=== PATIENT | male | born 1965 | race Caucasian/White ===

== ENCOUNTER 2022-04-07 12:22 | Outpatient (CLI) | payer MEDICARE, MEDICAID, SELFPAY ==
--- NOTE | 2022-04-07 11:15 | DI.RAD_ITS ---
Exam(s) XR KNEE RT 3V AP,LAT,MAGALIS EXAM: XR KNEE RT 3V AP,LAT,MAGALIS CLINICAL HISTORY: right knee pain TECHNIQUE: COMPARISON: No exams were available for comparison FINDINGS: Three views were obtained. There is no gross joint effusion seen on the lateral view. There may be slight narrowing of the cartilaginous joint space of the patellofemoral joint laterally. Otherwise c artilaginous joint spaces are well maintained. Slight marginal osteophyte formation is noted at the patellofemoral joint. No other significant bony abnormality seen. IMPRESSION: Mild DJD predominantly involving patellofemoral joint RADIATION DOSE DELIVERED: Total DLP
== END 2022-04-07 12:23 | disposition home or self-care (01) ==
LOC: DIORS 12:22
PROVIDERS: PCP Nurse Practitioner Adult Health; Referring Provider Nurse Practitioner Adult Health; Visit Provider Student in an Organized Health Care Education/Training Program
DX: M23.91 Unspecified internal derangement of right knee; M94.261 Chondromalacia, right knee
CPT/HCPCS: 73562; 99202; 99204

== ENCOUNTER 2022-04-08 15:47 | Emergency (ER) | payer MEDICARE, MEDICAID, SELFPAY ==
[2022-04-08] VITALS (24 sets, daily range): BP systolic 121–145; BP diastolic 76–86; PULSE 50–78; RESP 0–23; TEMP 36.2; O2SAT 84–97
--- NOTE | 2022-04-08 15:45 | RT.EKG_ITS ---
APPROVED REPORT Exam: Resting ECG Reason for Exam: DIZZINESS Patient Location: E HR:52 bpm ECG Measurements Heart Rate 52 AXIS KS 213 P 67 QRSd 92 QRS 36 QT 462 T 64 QTc 431 Conclusion Sinus bradycardia...rate< 60 Prolonged KS interval...KS >210, V-rate 50- 90
--- NOTE | 2022-04-08 16:19 | W.ED.GENAD ---
Discharge Plan Disposition Patient Disposition: AGAINST MEDICAL ADVICE Condition: Improving Discharge Details Clinical Impression: AMS (altered mental status) Primary Care Provider: Edilia Infante ED Provider: Fredrick Ingram Home Meds and New Rx's Prescriptions: No Action nitroglycerin 0.4 mg tablet, sublingual 0.4 mg sublingual ONCE Rx Instructions: as a single dose; administer 5-10 minutes before situation known to precipitate angina attack aspirin [Adult Aspirin Regimen] 81 mg tablet,delayed release (DR/EC) 81 mg PO DAILY glipizide 5 mg tablet extended release 24hr 5 mg PO DAILY Saccharomyces boulardii [Daily Probiotic (S. boulardii)] 250 mg capsule 250 mg PO DAILY Label Comments: currently out semaglutide 0.25 mg or 0.5 mg(2 mg/1.5 mL) pen injector 0.25 mg subcut QWEEK venlafaxine 75 mg tablet 150 mg PO DAILY tadalafil 5 mg tablet 5 mg PO DAILY metoprolol tartrate 50 mg tablet 50 mg PO BID Lantus Solostar U-100 Insulin 300 UNITS/3 ML insulin pen 10 unit SQ BID Label Comments: does not take anymore Discharge Instructions Instructions: Altered Mental Status (ED) Additional Instructions: At this time you have chosen to leave AGAINST MEDICAL ADVICE. The work-up to continue to reassess your neurological status along with evaluating urine specimen along with further cardiac testing was not completed. You may still have a life-threatening disease or disorder that is happening but given your choice to leave this may result in , disability, pain, anxiety, or unforeseen outcome. You may feel free to return to the emergency department at any time to complete the emergency evaluation and work-up. Medical Decision Making 1605 patient presenting to the emergency department for chief complaint of dizziness, vomiting, and heartburn. Today he started having some dizziness and feeling unsteady. He does state that he was going up and down some stairs at work but otherwise denies any precipitating event. Patient denies any acute pain or discomfort, headache, or other focal neurological complaints. Physical exam shows some constricted pupils, and that patient is slightly dazed/sedate but otherwise neuro exam is unremarkable. Patient is alert and oriented x3. We will plan on performing EKG, labs including troponin, and urinalysis. Patient's presentation at this point is not consistent with CVA but I am questioning potential substance ingestion/abuse. Please see physician interpretation for full interpretation of EKG. EKG shows sinus rhythm, and no acute ischemic findings or STEMI Pending lab results patient did want to leave AMA. Patient is alert and oriented x4, competent to make decisions, but did discuss with patient risk versus benefit. After this discussion significant other did convince patient to stay and complete evaluation given that he remains sedate but otherwise displays no worsening or change in neurological status. Reviewed patient labs show unremarkable CBC, CMP shows slight increase of BUN and nonfasting glucose, negative troponin, negative alcohol. 1844-staff mechanical engineer informed me that patient remains sedated but otherwise no focal neurological findings. She did state patient does have a decrease in oxygenation and respiratory rate while patient is sedated. Question of possible opiate ingestion. Still pending urinalysis and UDS so we will give patient 0.2 Narcan to see if this changes patient's situation. Patient still pending second troponin urinalysis and UDS. 1902 reassessed patient and nurse stated that Narcan aroused patient after giving and patient started become more alert and less sedate. Patient then began asking for discharge. Discussed with patient again risk of leaving AGAINST MEDICAL ADVICE before full emergency department evaluation was completed. Patient remains alert and oriented x4 and aware of the situation and competent to make his own decisions. AMA paperwork was provided and he was allowed to leave at his own choice. Patient's significant other was with was with him when he made this decision and he was ambulatory at time of discharge with no gait abnormalities and continued state of improving symptoms Lab Data Lab results reviewed: Yes I reviewed the patient's lab results. HPI General Mode of arrival: ambulatory. Date/Time Provider Initiated Documentation: 04/08/22 15:56. Limitations to Documentation: no limitations. Information obtained by: patient, family, RN notes reviewed and old records reviewed. History of Present Illness 56 year old M presents to the emergency department with the chief complaint of AMS dizziness and heartburn, described as moderate, Quality is described as other (denies acute pain), Patient reports no radiation. Patient started experiencing this hour(s) (1) and it has been constant. No relieving factors improve symptom(s), No exacerbating factors reported . Patient notes no other symptoms.. Patient did receive the following treatments prior to arrival, none Related Data Home Medications Medication Instructions Recorded Confirmed insulin glargine 100 unit/mL (3 10 unit SQ BID 08/17/15 04/07/22 mL) subcutaneous pen (Lantus Solostar U-100 Insulin) Saccharomyces boulardii 250 mg 250 mg PO DAILY 07/16/21 04/08/22 capsule (Daily Probiotic (S. boulardii)) aspirin 81 mg tablet,delayed 81 mg PO DAILY 07/16/21 04/08/22 release (Adult Aspirin Regimen) glipizide 5 mg tablet, extended 5 mg PO DAILY 07/16/21 04/08/22 release 24 hr semaglutide 0.25 mg or 0.5 mg (2 0.25 mg subcut QWEEK 07/16/21 04/08/22 mg/1.5 mL) subcutaneous pen injector venlafaxine 75 mg tablet 150 mg PO DAILY 07/16/21 04/08/22 metoprolol tartrate 50 mg tablet 50 mg PO BID 04/01/22 04/08/22 tadalafil 5 mg tablet 5 mg PO DAILY 04/01/22 04/08/22 nitroglycerin 0.4 mg sublingual 0.4 mg sublingual ONCE 04/07/22 04/08/22 tablet Allergies Allergy/AdvReac Type Severity Reaction Status Date / Time ibuprofen Allergy eyes Verified 04/08/22 16:07 swell up tramadol AdvReac Severe seizures Verified 04/08/22 16:07 lactose AdvReac Intermediate Verified 04/08/22 16:07 Penicillins AdvReac Vomiting Verified 04/08/22 16:07 prochlorperazine AdvReac freak out Verified 04/08/22 16:07 [From Compazine] prochlorperazine edisylate AdvReac freak out Verified 04/08/22 16:07 [From Compazine] prochlorperazine maleate AdvReac freak out Verified 04/08/22 16:07 [From Compazine] General Stated Complaint: CVA/TIA TOY: 2 Review of Systems Constitutional Constitutional: Denies body ache(s), Denies chills, Denies fatigue, Denies fever(s) and Denies headache(s) Eyes Eyes: Denies blurry vision and Denies change in vision ENT Ears, Nose, Mouth, and Throat: Denies abnormal hearing, Reports dizziness, Denies headache(s) and Reports disequilibrium Cardiovascular Cardiovascular: Denies chest pain, Denies syncope, Denies palpitations and Denies dyspnea Respiratory Respiratory: Denies cough and Denies dyspnea Gastrointestinal Gastrointestinal: Denies abdominal pain, Reports heartburn, Denies nausea and Denies vomiting Musculoskeletal Musculoskeletal: Denies back pain, Denies muscle weakness, Denies numbness and Denies tingling Integumentary/Breasts Skin/Breast: Denies rash Neurologic Neurologic: Reports as per HPI, Denies abnormal hearing, Denies confusion, Reports dizziness, Denies syncope, Denies headache(s), Denies numbness, Denies sensory deficit, Denies tingling, Denies paresthesias and Reports disequilibrium Psychiatric Psychiatric: Denies confusion Endocrine Endocrine: Denies fatigue and Denies palpitations PFSH All Active Problems (Updated 04/08/22 @ 19:07 by Fredrick Ingram NP) AMS (altered mental status) (Acute) Chondromalacia of right knee (Acute) Degenerative joint disease of right knee (Acute) Internal derangement of right knee (Acute) BPH (benign prostatic hyperplasia) (Chronic) Erectile dysfunction (Acute) Depression with anxiety (Acute) Chronic low back pain (Acute) Hypertension (Chronic) Smoker (Acute) Hyperlipidemia (Acute) CAD (coronary artery disease) (Chronic) Diabetes mellitus (Chronic) Medical History History of scoliosis Non-STEMI (non-ST elevated myocardial infarction) 02/18/21 [facility] Seizure Surgical History S/P CABG x 4 02/27/21 [facility] Had CHB s/p surgery which has since resolved Family History Mother COPD (chronic obstructive pulmonary disease) Emphysema/COPD Father Diabetes Paternal Grandfather Heart disease Myocardial infarction Social History Smoking/Tobacco Use Status: Current every day Tobacco Type: cigarettes Smoking risk assessment performed?: Yes Alcohol Intake: never Drug use: Never Substance use type: does not use Current gender identity: male Do you feel safe at home: Yes Do you feel safe in your relationship?: Yes Exam Const General: cooperative, healthy appearing, no acute distress and well groomed Orientation: alert, awake and oriented x3 HENMT Head: normal to inspection Ears: TM's normal bilaterally Mouth: oral mucosae normal and moist mucous membranes Throat: posterior oropharynx normal Eyes Visual Meeks: normal visual meeks by confrontation Alignment and Position: alignment normal Periorbital: periorbital findings normal Eyelids: eyelids normal Sclera: sclerae normal Pupils: PERRL, pinpoint bilaterally and pupil size bilaterally 2 EOM: EOM intact bilaterally Neck Neck: normal visual inspection, full ROM and no meningeal signs Resp Effort & Inspection: normal respiratory effort and able to speak in complete sentences Auscultation: clear to auscultation bilaterally Cardio Rate: bradycardic Rhythm: regular rhythm Heart Sounds: S1 normal and S2 normal Neuro General: patient alert, patient awake, patient oriented x3, gait normal, tone normal, moves all extremities, CN's II-XI intact bilaterally and not confused Cognition: normal cognition Speech: speech normal Motor: muscle tone normal throughout, strength 5/5 throughout, no pronator drift, no movement abnormalities noted and no fasciculations Sensory Exam: no sensory deficits noted Coordination: Does not sway with eyes open, rapid alternating movement UE normal and rapid alternating movement LE normal Course Vital Signs Vital signs: Vital Signs Temperature 36.2 C L 04/08/22 15:53 Pulse 62 04/08/22 15:53 Respiratory Rate 10 L 04/08/22 15:53 Blood Pressure 129/86 04/08/22 15:53 Pulse Oximetry 94 04/08/22 15:53 Temperature 36.2 C L 04/08/22 15:53 Temperature Source Skin 04/08/22 15:53 Pulse 62 04/08/22 15:53 Respiratory Rate 10 L 04/08/22 15:53 Blood Pressure 129/86 04/08/22 15:53 Pulse Oximetry 94 04/08/22 15:53 Oxygen Delivery Method Room Air 04/08/22 15:53 Oxygen Flow Rate 0 04/08/22 15:53 Pain Level 5 04/08/22 15:53 Comment 04/08/22 15:53
[2022-04-08 16:31] LABS: Abs Immature Grans 0.02 10^3/uL (0.0-0.06); Absolute Basophil Count 0.06 10^3/uL (0.0-0.2); Absolute Eosinophil Count 0.29 10^3/uL (0.0-0.7); Absolute Lymphocyte Count 2.33 10^3/uL (1.2-3.4); Absolute Monocyte Count 0.55 10^3/uL (0.1-0.8); Basophils % 0.7; Eosinophils % 3.6; HGB 13.8 g/dL (13.5-17.5); Immature Grans % 0.2; Lymphocytes % 28.9; MCH 29.4 pg (27.0-33.0); MCHC 33.7 % (32.0-36.0); MCV 87 fL (80-95); MPV 9.8 fL (8.0-11.0); Monocytes % 6.8; Neutrophils % 59.8; Platelet Count 234 10^3/uL (130-400); RDW 13.8 % (11.8-14.1); RDW-SD 44.1 fL; WBC 8.05 10^3/uL (4.4-10.8)
[2022-04-08 16:49] LABS: Diff Comment Agrees w/ Instrument; RBC Morphology Normal
[2022-04-08 16:53] LABS: ALT 28 U/L (16-63); AST 18 U/L (15-37); Albumin 3.7 g/dL (3.4-5.0); Alkaline Phosphatase 97 U/L (46-116); Anion Gap 5.6 mmol/L (3-11); BUN 19 mg/dL (7-18); Bilirubin, Total 0.3 mg/dL (0.2-1.0); CO2 31.4 mmol/L (21.0-32.0); CREATININE 1.1 mg/dL (0.70-1.30); Calcium 9.1 mg/dL (8.5-10.1); Chloride 102 mmol/L (98-107); Glucose 120 mg/dL (74-106); Magnesium 2.1 mg/dL (1.8-2.4); Potassium 3.6 mmol/L (3.5-5.1); Sodium 139 mmol/L (136-145); Total Protein 7.6 g/dL (6.4-8.2); Troponin I < 50 ng/L (<or=60)
[2022-04-08] MEDS: Normal Saline 500 ML IV ×2 (16:55→18:23)
[2022-04-08 17:09] LABS: ETHANOL BLOOD < 3.0 mg/dL (<10)
[2022-04-08] MEDS: Ondansetron 4 MG/2 ML VIAL IVP (18:42)
[2022-04-08] MEDS: Naloxone 0.4 MG/ML VIAL 0.2 MG IVP (18:56)
== END 2022-04-08 19:20 | disposition left against medical advice (07) ==
PROVIDERS: Emergency Provider Nurse Practitioner Family; PCP Nurse Practitioner Adult Health
DX: R41.82 Altered mental status, unspecified (principal); R42 Dizziness and giddiness; R11.10 Vomiting, unspecified; Z53.29 Procedure and treatment not carried out because of patient's decision for other reasons; Z79.899 Other long term (current) drug therapy
CPT/HCPCS: 36415; 36416; 80053; 82962; 93005; 96361; 96374; 96375; 99284; 80320; 83735; 84484; 85025; 93010; J2310; J2405

== ENCOUNTER → 2022-04-29 02:05 | Outpatient (CLI) | payer MEDICARE, MEDICAID, SELFPAY ==
--- NOTE | 2022-04-29 08:15 | DI.MRI_ITS ---
Exam(s) MR LOWER JOINT RT WO EXAM: MR LOWER JOINT RT WO CLINICAL HISTORY: R KNEE PAIN, INTERNAL DERANGEMENT, M23.91, M17.11, OA RT KNEE. TECHNIQUE: Multiplanar multisequence MRI was performed. COMPARISON: CR XR KNEE RT 3V AP,LAT,MAGALIS from 04/07/2022 FINDINGS: BONES: There is no fracture or contusion pattern. There is a small focus of high signal seen in the a nterior aspect of the lateral femoral condyle, degenerative in appearance. JOINTS: Articular cartilage shows thinning over the femoral condyles. There is mild spurring from th e femoral condyles and tibial plateaus as well as patellofemoral joint.. A small joint effusion is p resent. TENDONS: Extensor mechanism: Unremarkable. Medial retinaculum: Unremarkable. Lateral retinaculum: Unremarkable. Popliteus: Unremarkable. MUSCLES: Unremarkable. MENISCI: The medial meniscus is unremarkable. The lateral meniscus is unremarkable. SOFT TISSUES: Can's cyst approximately 4 cm in length.. LIGAMENTS: Anterior Cruciate: Unremarkable. Posterior Cruciate: Unremarkable. Medial Collateral:Unremarkable. Lateral Collateral: Unremarkable. OTHER: IMPRESSION: Degenerative changes with cartilage thinning of the femoral condyles. The no ligament or meniscal te ar. Joint effusion and Can's cyst. DATA REPOSITORY:
== END ==
PROVIDERS: PCP Nurse Practitioner Adult Health; Visit Provider Student in an Organized Health Care Education/Training Program
DX: M71.21 Synovial cyst of popliteal space [Baker], right knee (principal); M94.8X6 Other specified disorders of cartilage, lower leg; M17.11 Unilateral primary osteoarthritis, right knee; M23.91 Unspecified internal derangement of right knee; M25.461 Effusion, right knee
CPT/HCPCS: 73721

== ENCOUNTER → 2022-05-05 13:28 | Outpatient (BNVA) | payer MEDICARE, MEDICAID, SELFPAY | PROVIDERS: PCP Nurse Practitioner Adult Health; Referring Provider Nurse Practitioner Adult Health; Visit Provider Student in an Organized Health Care Education/Training Program | DX: M17.11 Unilateral primary osteoarthritis, right knee (principal) | CPT/HCPCS: 20610; 99214; J1030 ==

== ENCOUNTER → 2022-07-05 07:54 | Outpatient (BNVA) | payer MEDICARE, MEDICAID, SELFPAY | PROVIDERS: PCP Nurse Practitioner Adult Health; Referring Provider Nurse Practitioner Adult Health; Visit Provider Student in an Organized Health Care Education/Training Program | DX: M17.11 Unilateral primary osteoarthritis, right knee (principal) | CPT/HCPCS: 99213 ==

== ENCOUNTER 2022-08-12 10:36 | Outpatient (CLI) | payer MEDICARE, MEDICAID, SELFPAY ==
--- NOTE | 2022-08-12 07:45 | DI.RAD_ITS ---
Exam(s) XR STANDING ALIGNMENT EXAM: XR STANDING ALIGNMENT CLINICAL HISTORY: R TKR planning TECHNIQUE: COMPARISON: No exams were available for comparison FINDINGS: AP standing alignment views of the lower extremities were obtained. There are mild degenerative noguera ges of both hips. There are mild degenerative changes of the joints of both knees. IMPRESSION: RADIATION DOSE DELIVERED: Total DLP
== END 2022-08-12 10:37 | disposition home or self-care (01) ==
LOC: DIORS 10:37
PROVIDERS: PCP Nurse Practitioner Adult Health; Referring Provider Nurse Practitioner Adult Health; Visit Provider Physician Assistant
DX: M17.11 Unilateral primary osteoarthritis, right knee (principal); Z01.818 Encounter for other preprocedural examination
CPT/HCPCS: 77073

== ENCOUNTER 2022-08-19 09:16 | Outpatient (CLI) | payer MEDICARE, MEDICAID, SELFPAY ==
--- NOTE | 2022-08-19 09:15 | RT.EKG_ITS ---
APPROVED REPORT Exam: Resting ECG Reason for Exam: CAD Patient Location: O HR:72 bpm ECG Measurements Heart Rate [address] 205 P 67 QRSd 101 QRS 32 QT 409 T 42 QTc 448 Conclusion Sinus rhythm...normal P axis, V-rate 50- [address] interval...CT >202, V-rate 50- 90
== END 2022-08-19 09:17 | disposition home or self-care (01) ==
LOC: DI.CARD 09:16
PROVIDERS: PCP Nurse Practitioner Adult Health; Visit Provider Internal Medicine Cardiovascular Disease
DX: I25.10 Atherosclerotic heart disease of native coronary artery without angina pectoris (principal)
CPT/HCPCS: 93010

== ENCOUNTER → 2022-08-19 10:41 | Outpatient (BNVA) | payer MEDICARE, MEDICAID, SELFPAY | PROVIDERS: PCP Nurse Practitioner Adult Health; Visit Provider Internal Medicine Cardiovascular Disease | DX: I25.810 Atherosclerosis of coronary artery bypass graft(s) without angina pectoris (principal); E11.9 Type 2 diabetes mellitus without complications; F17.210 Nicotine dependence, cigarettes, uncomplicated; I25.2 Old myocardial infarction; Z01.810 Encounter for preprocedural cardiovascular examination; I10 Essential (primary) hypertension | CPT/HCPCS: 93005; 99203; 99214 ==

== ENCOUNTER 2022-08-23 03:10 | Outpatient (CLI) | payer MEDICARE, MEDICAID, SELFPAY ==
[2022-08-23 09:45] LABS: HCT 42.5 % (40.0-50.0); HGB 14.3 g/dL (13.5-17.5); MCH 28.8 pg (27.0-33.0); MCHC 33.6 % (32.0-36.0); MCV 86 fL (80-95); MPV 9.5 fL (8.0-11.0); Platelet Count 290 10^3/uL (130-400); RBC 4.97 10^6/uL (4.36-5.78); RDW 12.9 % (11.8-14.1); RDW-SD 40.3 fL; WBC 10.54 10^3/uL (4.4-10.8)
[2022-08-23 10:22] LABS: Hemoglobin A1C 6.6 % (<5.7)
[2022-08-23 10:27] LABS: Anion Gap 7.7 mmol/L (3-11); BUN 21 mg/dL (7-18); CO2 28.3 mmol/L (21.0-32.0); CREATININE 0.9 mg/dL (0.70-1.30); Calcium 9.3 mg/dL (8.5-10.1); Chloride 100 mmol/L (98-107); Estimated GFR 100.86 (mL/min/1.73m2); Glucose 148 mg/dL (74-106); Potassium 3.8 mmol/L (3.5-5.1); Sodium 136 mmol/L (136-145)
== END 2022-08-23 03:11 | disposition home or self-care (01) ==
LOC: LBO 03:10
PROVIDERS: PCP Nurse Practitioner Adult Health; Visit Provider Student in an Organized Health Care Education/Training Program
DX: M25.561 Pain in right knee (principal); M17.11 Unilateral primary osteoarthritis, right knee; E11.9 Type 2 diabetes mellitus without complications; I10 Essential (primary) hypertension; Z01.818 Encounter for other preprocedural examination; Z01.812 Encounter for preprocedural laboratory examination
CPT/HCPCS: 80048; 85027; 83036

== ENCOUNTER 2022-08-24 07:06 | Day surgery (SDC) | payer MEDICARE, MEDICAID, SELFPAY ==
[2022-08-24] VITALS (11 sets, daily range): BP systolic 100–135; BP diastolic 53–84; PULSE 55–99; RESP 11–20; TEMP 36.3–37; O2SAT 67–100; BMI 28.2
--- NOTE | 2022-08-24 07:27 | DSE_ITS ---
DS: Diagnosis Discharge Diagnosis (1) Degenerative joint disease of right knee: Status: Acute (2) Chondromalacia of right knee: Status: Acute Discharge Plan Disposition Patient Disposition: HOME Condition: Good Discharge Details Reason For Visit: Right knee DJD Attending Provider: Ramakrishna Tovar Primary Care Provider: Edilia Infante Home Meds and New Rx's Prescriptions: New aspirin 81 mg tablet,delayed release (DR/EC) 81 mg PO BID 30 Days Qty: 60 0RF acetaminophen 500 mg tablet 1,000 mg PO Q8H PRN Qty: 90 0RF Rx Instructions: Take two tablets up to every 8 hours as needed for pain pantoprazole 40 mg tablet,delayed release (DR/EC) 40 mg PO DAILY 14 Days Qty: 14 0RF docusate sodium [Colace] 100 mg capsule 100 mg PO BID Qty: 30 0RF gabapentin 300 mg capsule 300 mg PO QHS Qty: 14 0RF Rx Instructions: Take one tablet at bedtime oxycodone 5 mg tablet 5 mg PO Q4H PRN (Reason: severe post-operative pain) Qty: 18 0RF Rx Instructions: Take one tablet up to every 4 hours as needed for severe pain meloxicam 15 mg tablet 15 mg PO DAILY Qty: 30 0RF Rx Instructions: Take once daily for pain and inflammation Continued nitroglycerin 0.4 mg tablet, sublingual 0.4 mg sublingual ONCE Rx Instructions: as a single dose; administer 5-10 minutes before situation known to precipitate angina attack amlodipine 5 mg tablet 5 mg PO DAILY multivitamin Tablet 1 tab PO DAILY cetirizine 10 mg tablet 10 mg PO DAILY PRN mometasone 0.1 % cream 1 applic topical DAILY Qty: 15 1RF glipizide 5 mg tablet extended release 24hr 5 mg PO DAILY semaglutide 0.25 mg or 0.5 mg(2 mg/1.5 mL) pen injector 0.25 mg subcut QWEEK venlafaxine 75 mg tablet 150 mg PO DAILY tadalafil 5 mg tablet 5 mg PO DAILY metoprolol tartrate 50 mg tablet 50 mg PO BID Discontinued celecoxib 200 mg capsule 200 mg PO BID Qty: 60 0RF aspirin [Adult Aspirin Regimen] 81 mg tablet,delayed release (DR/EC) 81 mg PO DAILY Discharge Instructions Additional Instructions: Total Knee Discharge Instructions Activity: The most important activity is to walk and to work on gentle motion (both flexion and extension). You should try to take short walks a few times a day. It is important that when resting you work on keeping the knee straight. Avoid putting a pillow behind the knee as this will encourage flexion. Work on range of motion exercises as provided by Physical Therapy. - Start outpatient physical therapy within 2 weeks. - You should wear the MARCO A hose on both legs for 2 weeks. You may remove these at night. You may also use any compression sock in place of the MARCO A hose. - Utilize [employer] to review exercises, see videos on exercises and obtain basic information pertaining to your surgery and your recovery. Dressing: Remove the Robert wrap by 2 days after your surgery and put on the MARCO A stocking given to you from the hospital. Keep the surgical dressing (underneath the ROBERT wrap) in place for at least one week. After the first week it may be removed and replaced with light gauze and tape or nothing. The wound and dressing may get wet after 3 days but avoid soaking the dressing or otherwise it will need to be changed. Many people prefer covering the dressing with cling wrap (saran wrap) to minimize it from getting soaked. If it gets wet, just pat dry. If it starts to peel off then it will need to be changed. Medications: - You should take Tylenol and anti-inflammatory Meloxicam as your primary pain control medications. If the Meloxicam is too expensive or not covered, please call the office for another alternative (Naproxen/Aleve). - You have been prescribed a stronger pain medication Oxycodone for breakthrough pain, take as needed as prescribed. - You have also been prescribed a stomach acid reduction agent Pantoprozole to help reduce stomach acid and reflux. - You have been prescribed Gabapentin to take at night for restlessness and nerve pain. - You will be taking Aspirin 81mg twice a day for DVT prevention unless instructed otherwise. - If you have constipation you should take Colace (which has been prescribed) or Miralax (which is available [id number]). It takes most people 3-4 days to have a bowel movement. Follow-up: 2 weeks If you have any acute concerns or questions, please do not hesitate to contact the office at [phone]. You may contact Dr. Tovar with any questions after hours through the hospital at [phone] or on his cell phone at [phone]. Stand Alone Forms: Anesthesia Discharge Inst., [place].Nerve Block Instructions, Cedric Bernard ([facility]) Referrals: Ramakrishna Tovar MD [ [facility] STAFF PHYSICIAN] - Equipment/Supplies: Walker Activity:: Elevate Remove Dressings/Wound Care:: Do Not Remove Shower/Bathe:: Cover Diet:: As Tolerated Discharge Orders Discharge Orders: Discharge Order (Routine); Ordered 08/24/22 Ordered By: Ramakrishna Tovar DS: Summary Time Spent with Patient providing and/or coordinating discharge services: Less than 30 minutes Status at Discharge Functional status at discharge: uses cane/walker Overall status at discharge: patient is progressing back to baseline Mental Status: mental status grossly normal Speech and Movement: speech and movement normal Mood: congruent mood Affect: normal affect Exam Psych Mental Status: mental status grossly normal Speech and Movement: speech and movement normal Mood: congruent mood Affect: normal affect DS: Data Vitals/I&O Vitals and I&O: Intake & Output 08/23/22 08/23/22 08/24/22 11:59 23:59 11:59 Weight 208 lb 5.001 oz PFSH All Active Problems Diabetes mellitus (Chronic) CAD (coronary artery disease) (Chronic) Hyperlipidemia (Acute) Smoker (Acute) Hypertension (Chronic) Chronic low back pain (Acute) Depression with anxiety (Acute) Erectile dysfunction (Acute) BPH (benign prostatic hyperplasia) (Chronic) Internal derangement of right knee (Acute) Degenerative joint disease of right knee (Acute) Steroid injection (40 mg): 05/05/2022 Chondromalacia of right knee (Acute) Chronic eczematoid otitis externa of both ears (Acute) Sensorineural hearing loss (SNHL) of both ears (Acute) Preoperative cardiovascular examination (Acute) Medical History History of scoliosis Non-STEMI (non-ST elevated myocardial infarction) 02/18/21 [facility] Seizure Per pt. states this is related to his allergy to tramado, which causes seizures Surgical History Hx of hand surgery scaphoid bone surgery, screws Dr. 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 Had CHB s/p surgery which has since resolved Family History Mother COPD (chronic obstructive pulmonary disease) Emphysema/COPD Father Diabetes Paternal Grandfather Heart disease Myocardial infarction Social History Smoking/Tobacco Use Status: Current every day Tobacco Type: cigarettes Years smoked: 44 Smoking risk assessment performed?: Yes Alcohol Intake: never Drug use: Never Substance use type: does not use current occupation: disabled Pets and animals: Yes Pets and animals: cat(s) Current gender identity: male What is your relationship status?: Panel score (0-1 are the most socially isolated patients): 0 Do you feel safe at home: Yes Do you feel safe in your relationship?: Yes
[2022-08-24] MEDS: Gabapentin 300 MG CAP PO (08:05)
[2022-08-24] MEDS: Acetaminophen 500 MG TAB 1000 MG PO (08:05)
--- NOTE | 2022-08-24 08:05 | W.ANESPRE ---
General Info Date of Service Date Performed: 08/24/22 Height: 5 ft 10.5 in Weight: 90.5 kg Body Mass Index (BMI): 28.2 Surgical Procedure: Operation Date: 08/24/22 09:40 Proposed Procedure Side Surgeon p Knee Total Arthroplasty Right Ramakrishna Tovar MD Meds Allergies and Home Medications Allergies Allergy/AdvReac Type Severity Reaction Status Date / Time ibuprofen Allergy eyes Verified 08/24/22 07:58 swell up tramadol AdvReac Severe seizures Verified 08/24/22 07:58 lactose AdvReac Intermediate Verified 08/24/22 07:58 prochlorperazine AdvReac freak out Verified 08/24/22 07:58 [From Compazine] prochlorperazine edisylate AdvReac freak out Verified 08/24/22 07:58 [From Compazine] prochlorperazine maleate AdvReac freak out Verified 08/24/22 07:58 [From Compazine] Home Medication Medication Instructions Recorded glipizide 5 mg tablet, extended 5 mg PO DAILY 07/16/21 release 24 hr semaglutide 0.25 mg or 0.5 mg (2 0.25 mg subcut QWEEK 07/16/21 mg/1.5 mL) subcutaneous pen injector venlafaxine 75 mg tablet 150 mg PO DAILY 07/16/21 metoprolol tartrate 50 mg tablet 50 mg PO BID 04/01/22 tadalafil 5 mg tablet 5 mg PO DAILY 04/01/22 nitroglycerin 0.4 mg sublingual 0.4 mg sublingual ONCE 04/07/22 tablet amlodipine 5 mg tablet 5 mg PO DAILY 04/28/22 cetirizine 10 mg tablet 10 mg PO DAILY PRN 04/28/22 mometasone 0.1 % topical cream 1 applic topical DAILY #15 grams 04/28/22 multivitamin 1 tab PO DAILY 04/28/22 acetaminophen 500 mg tablet 1,000 mg PO Q8H PRN pain #90 tabs 08/24/22 aspirin 81 mg tablet,delayed 81 mg PO BID 30 days #60 tabs 08/24/22 release docusate sodium 100 mg capsule 100 mg PO BID #30 caps 08/24/22 (Colace) gabapentin 300 mg capsule 300 mg PO QHS #14 caps 08/24/22 meloxicam 15 mg tablet 15 mg PO DAILY #30 tabs 08/24/22 oxycodone 5 mg tablet 5 mg PO Q4H PRN severe 08/24/22 post-operative pain #18 tabs pantoprazole 40 mg tablet,delayed 40 mg PO DAILY 14 days #14 tabs 08/24/22 release Current Visit Medications: Current Medications Generic Name Dose Route Start Last Admin Trade Name Freq PRN Reason Stop Dose Admin Acetaminophen 1,000 mg 08/24/22 06:00 Acetaminophen 500 Mg Tab PO 08/24/22 18:00 PREOP [facility] Acetaminophen 1,000 mg 08/24/22 08:30 Acetaminophen 500 Mg Tab PO TID [facility] Aspirin 81 mg 08/24/22 08:30 Aspirin E.C. 81 Mg Tabec PO BID [facility] Celecoxib 400 mg 08/24/22 06:00 Celecoxib 200 Mg Cap PO 08/24/22 18:00 PREOP [facility] Docusate Sodium 100 mg 08/24/22 07:25 Docusate Sodium 100 Mg Cap PO BID PRN PRN Constipation Gabapentin 300 mg 08/24/22 06:00 Gabapentin 300 Mg Cap PO 08/24/22 18:00 PREOP [facility] Gabapentin 300 mg 08/24/22 22:00 Gabapentin 300 Mg Cap PO HS [facility] Hydromorphone HCl 0.5 mg 08/24/22 07:25 Hydromorphone 2 Mg/Ml Syr IVP Q2H PRN PRN Tranexamic Acid 1,000 mg/ 60 mls @ 360 mls/hr 08/24/22 06:00 Sodium Chloride IVPB 08/24/22 18:00 PREOP [facility] Ringer's Solution 1,000 mls @ 80 mls/hr 08/24/22 06:00 IV 09/22/22 23:59 INFUSION [facility] Cefazolin Sodium/Dextrose 2 gm in 50 mls @ 100 mls/hr 08/24/22 06:00 Ancef Duplex IVPB 08/24/22 16:00 PREOP [facility] Cefazolin Sodium/Dextrose 1 gm in 50 mls @ 100 mls/hr 08/24/22 08:00 Ancef Duplex IVPB 08/25/22 00:29 Q8H [facility] IV Miscellaneous Supplies 1 each 08/24/22 06:00 Iv Access IV 09/22/22 23:59 DIRECTED [facility] Meloxicam 15 mg 08/24/22 08:30 Meloxicam 15 Mg Tab PO DAILY [facility] Ondansetron HCl 4 mg 08/24/22 07:25 Ondansetron 4 Mg/2 Ml Vial IVP Q6H PRN PRN Nausea Oxycodone HCl 0 mg 08/24/22 07:25 Oxycodone 5 Mg Tab PO Q3H PRN PRN Pain Pantoprazole Sodium 40 mg 08/24/22 07:30 Pantoprazole 40 Mg Tabcr PO DAILY@0730 [facility] Polyethylene Glycol 17 gm 08/24/22 07:25 Polyethylene Glycol 3350 17 Gm Packet PO BID PRN PRN Constipation Sodium Chloride 0 ml 08/24/22 06:00 Normal Saline Flush 10 Ml Syr IV 09/22/22 23:59 PRN PRN Sodium Chloride 0 ml 08/24/22 06:00 Normal Saline 10 Ml Vial IJ 09/22/22 23:59 DIRECTED PRN Sterile Water 0 ml 08/24/22 06:00 Water,Injection,Sterile 10 Ml Vial IJ 09/22/22 23:59 DIRECTED PRN PFSH Active Problems Active Problems: Problem Status Onset Code Diabetes mellitus E11.9 CAD (coronary artery disease) I25.10 Hyperlipidemia E78.5 Smoker F17.200 Hypertension I10 Chronic low back pain M54.50, G89.29 Depression with anxiety F41.8 Erectile dysfunction N52.9 BPH (benign prostatic hyperplasia) N40.0 Internal derangement of right knee M23.91 Degenerative joint disease of right knee M17.11 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 states this is related to his allergy to tramado, which causes seizures Surgical History Surgical History Hx of hand surgery scaphoid bone surgery, screws Dr. 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 [facility] Had CHB s/p surgery which has since resolved Tobacco Smoking/Tobacco Use Status: Current every day Tobacco Type: cigarettes Years smoked: 44 Alcohol Alcohol Intake: never Substance Use Substance use: Never Substance use type: does not use Vital Signs and Lab Results Vital Signs Most Recent Vital Signs in EMR: Most Recent Vital Signs Temp Pulse Resp BP Pulse Ox 36.7 C 74 20 135/84 97 08/24/22 07:34 08/24/22 07:34 08/24/22 07:34 08/24/22 07:34 08/24/22 07:34 Lab Results Blood Type / Crossmatch: No Data to Display Complete Blood Count: White Blood Count 10.54 10^3/uL (4.4-10.8) 08/23/22 09:36 Red Blood Count 4.97 10^6/uL (4.36-5.78) 08/23/22 09:36 Hemoglobin 14.3 g/dL (13.5-17.5) 08/23/22 09:36 Hematocrit 42.5 % (40.0-50.0) 08/23/22 09:36 Platelet Count 290 10^3/uL (130-400) 08/23/22 09:36 Complete Metabolic Panel: Sodium 136 mmol/L (136-145) 08/23/22 09:36 Potassium 3.8 mmol/L (3.5-5.1) 08/23/22 09:36 Chloride 100 mmol/L (98-107) 08/23/22 09:36 Carbon Dioxide 28.3 mmol/L (21.0-32.0) 08/23/22 09:36 BUN 21 mg/dL (7-18) H 08/23/22 09:36 Creatinine 0.9 mg/dL (0.70-1.30) 08/23/22 09:36 Est GFR (CKD-EPI 2020) 100.86 (mL/min/1.73m2) 08/23/22 09:36 Calcium 9.3 mg/dL (8.5-10.1) 08/23/22 09:36 Glucose 148 mg/dL (74-106) H 08/23/22 09:36 Hemoglobin A1c 6.6 % (<5.7) H 08/23/22 09:36 Liver Function Panel: No Data to Display Coagulation Panel: No Data to Display Cardiac Panel: No Data to Display Arterial Blood Gas: No Data to Display Venous Blood Gas: No Data to Display Pancreas Panel: No Data to Display Thyroid Panel: No Data to Display Infectious Disease: No Data to Display Blood Cultures: No Data to Display Toxicology Panel: No Data to Display Imaging and Studies Imaging and Studies Study information below may be from another EMR and interpreted by another provider. Please see original notes in EMR for more complete details. EKG Summary: 08/19/22 Sinus rhythm...normal P axis, V-rate 50- 99 Borderline prolonged NM interval...NM >202, V-rate 50- 90 Echocardiogram Summary: 02/18/21: [facility]: EF 50%, Normal Valves Cardiac Catheterization Summary: 02/18/21: LAD,Left Cx, RCA disease. CABG was performed. Anesthesia Assessment and Plan Anesthesia History Personal History: No History of Anesthesia Complications Family History: No Family History of Anesthesia Complications Exercise Tolerance Exercise Tolerance: Metabolic Equivalents>4 Pertinent Negatives Pertinent Negatives: No Symptoms of GERD, No Major Cardiovascular Symptoms or Complaints, No Major Pulmonary Symptoms or Complaints and No History of CVA/TIA Cardiac & Pulmonary Exam Cardiac Exam: Normal S1/S2 Heart Sounds Pulmonary Exam: Clear Bilateral Breath Sounds Implantable Cardiac Device Does patient have a Pacemaker or an ICD?: No Airway Exam Known Difficult Airway: No Mallampati Class: 2 Mouth Opening: Normal (> 3cm) Thyromental Distance: Greater than 3 cm Neck Range of Motion: Full ROM Neck Circumference: Normal Teeth Condition: Normal Dentition ASA Classification ASA Score: ASA 3 Emergency Case?: No NPO Status NPO Status: NPO Clears >2 hours, Solids >8 hours Anesthesia Plan Resuscitation Status: Full Code Anesthesia Technique: General Anesthesia Airway Planned: Natural Airway Monitors Used: Standard Monitors
[2022-08-24] MEDS: Lactated Ringers 1,000 ML 80 ML IV (08:22)
--- NOTE | 2022-08-24 08:45 | ANES.PREOP_ITS ---
General Info Date of Service Date Performed: 08/24/22 Height: 5 ft 10.5 in Weight: 90.5 kg Body Mass Index (BMI): 28.2 Surgical Procedure: Operation Date: 08/24/22 09:40 Proposed Procedure Side Surgeon p Knee Total Arthroplasty Right Ramakrishna Tovar MD Meds Allergies and Home Medications Allergies Allergy/AdvReac Type Severity Reaction Status Date / Time ibuprofen Allergy eyes Verified 08/24/22 07:58 swell up tramadol AdvReac Severe seizures Verified 08/24/22 07:58 lactose AdvReac Intermediate Verified 08/24/22 07:58 prochlorperazine AdvReac freak out Verified 08/24/22 07:58 [From Compazine] prochlorperazine edisylate AdvReac freak out Verified 08/24/22 07:58 [From Compazine] prochlorperazine maleate AdvReac freak out Verified 08/24/22 07:58 [From Compazine] Home Medication Medication Instructions Recorded glipizide 5 mg tablet, extended 5 mg PO DAILY 07/16/21 release 24 hr semaglutide 0.25 mg or 0.5 mg (2 0.25 mg subcut QWEEK 07/16/21 mg/1.5 mL) subcutaneous pen injector venlafaxine 75 mg tablet 150 mg PO DAILY 07/16/21 metoprolol tartrate 50 mg tablet 50 mg PO BID 04/01/22 tadalafil 5 mg tablet 5 mg PO DAILY 04/01/22 nitroglycerin 0.4 mg sublingual 0.4 mg sublingual ONCE 04/07/22 tablet amlodipine 5 mg tablet 5 mg PO DAILY 04/28/22 cetirizine 10 mg tablet 10 mg PO DAILY PRN 04/28/22 mometasone 0.1 % topical cream 1 applic topical DAILY #15 grams 04/28/22 multivitamin 1 tab PO DAILY 04/28/22 acetaminophen 500 mg tablet 1,000 mg PO Q8H PRN pain #90 tabs 08/24/22 aspirin 81 mg tablet,delayed 81 mg PO BID 30 days #60 tabs 08/24/22 release docusate sodium 100 mg capsule 100 mg PO BID #30 caps 08/24/22 (Colace) gabapentin 300 mg capsule 300 mg PO QHS #14 caps 08/24/22 meloxicam 15 mg tablet 15 mg PO DAILY #30 tabs 08/24/22 oxycodone 5 mg tablet 5 mg PO Q4H PRN severe 08/24/22 post-operative pain #18 tabs pantoprazole 40 mg tablet,delayed 40 mg PO DAILY 14 days #14 tabs 08/24/22 release Current Visit Medications: Current Medications Generic Name Dose Route Start Last Admin Trade Name Freq PRN Reason Stop Dose Admin Acetaminophen 1,000 mg 08/24/22 06:00 08/24/22 08:05 Acetaminophen 500 Mg Tab PO 08/24/22 18:00 1,000 mg PREOP [facility] Administration Acetaminophen 1,000 mg 08/24/22 08:30 Acetaminophen 500 Mg Tab PO TID [facility] Aspirin 81 mg 08/24/22 08:30 Aspirin E.C. 81 Mg Tabec PO BID [facility] Celecoxib 400 mg 08/24/22 06:00 Celecoxib 200 Mg Cap PO 08/24/22 18:00 PREOP [facility] Docusate Sodium 100 mg 08/24/22 07:25 Docusate Sodium 100 Mg Cap PO BID PRN PRN Constipation Gabapentin 300 mg 08/24/22 06:00 08/24/22 08:05 Gabapentin 300 Mg Cap PO 08/24/22 18:00 300 mg PREOP [facility] Administration Gabapentin 300 mg 08/24/22 22:00 Gabapentin 300 Mg Cap PO HS [facility] Hydromorphone HCl 0.5 mg 08/24/22 07:25 Hydromorphone 2 Mg/Ml Syr IVP Q2H PRN PRN Tranexamic Acid 1,000 mg/ 60 mls @ 360 mls/hr 08/24/22 06:00 Sodium Chloride IVPB 08/24/22 18:00 PREOP [facility] Ringer's Solution 1,000 mls @ 80 mls/hr 08/24/22 06:00 08/24/22 08:22 IV 09/22/22 23:59 80 mls/hr INFUSION [facility] Administration Cefazolin Sodium/Dextrose 2 gm in 50 mls @ 100 mls/hr 08/24/22 06:00 Ancef Duplex IVPB 08/24/22 16:00 PREOP [facility] Cefazolin Sodium/Dextrose 1 gm in 50 mls @ 100 mls/hr 08/24/22 08:00 Ancef Duplex IVPB 08/25/22 00:29 Q8H [facility] IV Miscellaneous Supplies 1 each 08/24/22 06:00 Iv Access IV 09/22/22 23:59 DIRECTED [facility] Meloxicam 15 mg 08/24/22 08:30 Meloxicam 15 Mg Tab PO DAILY [facility] Ondansetron HCl 4 mg 08/24/22 07:25 Ondansetron 4 Mg/2 Ml Vial IVP Q6H PRN PRN Nausea Oxycodone HCl 0 mg 08/24/22 07:25 Oxycodone 5 Mg Tab PO Q3H PRN PRN Pain Pantoprazole Sodium 40 mg 08/24/22 07:30 Pantoprazole 40 Mg Tabcr PO DAILY@0730 [facility] Polyethylene Glycol 17 gm 08/24/22 07:25 Polyethylene Glycol 3350 17 Gm Packet PO BID PRN PRN Constipation Sodium Chloride 0 ml 08/24/22 06:00 Normal Saline Flush 10 Ml Syr IV 09/22/22 23:59 PRN PRN Sodium Chloride 0 ml 08/24/22 06:00 Normal Saline 10 Ml Vial IJ 09/22/22 23:59 DIRECTED PRN Sterile Water 0 ml 08/24/22 06:00 Water,Injection,Sterile 10 Ml Vial IJ 09/22/22 23:59 DIRECTED PRN PFSH Active Problems Active Problems: Problem Status Onset Code Diabetes mellitus E11.9 CAD (coronary artery disease) I25.10 Hyperlipidemia E78.5 Smoker F17.200 Hypertension I10 Chronic low back pain M54.50, G89.29 Depression with anxiety F41.8 Erectile dysfunction N52.9 BPH (benign prostatic hyperplasia) N40.0 Internal derangement of right knee M23.91 Degenerative joint disease of right knee M17.11 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 states this is related to his allergy to tramado, which causes seizures Surgical History Surgical History Hx of hand surgery scaphoid bone surgery, screws Dr. 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 [facility] Had CHB s/p surgery which has since resolved Tobacco Smoking/Tobacco Use Status: Current every day Tobacco Type: cigarettes Years smoked: 44 Alcohol Alcohol Intake: never Substance Use Substance use: Never Substance use type: does not use Vital Signs and Lab Results Vital Signs Most Recent Vital Signs in EMR: Most Recent Vital Signs Temp Pulse Resp BP Pulse Ox 36.7 C 74 20 135/84 97 08/24/22 07:34 08/24/22 07:34 08/24/22 07:34 08/24/22 07:34 08/24/22 07:34 Point of Care Results Point of Care Results: Finger Stick Blood Glucose 165 08/24/22 08:11 Lab Results Blood Type / Crossmatch: No Data to Display Complete Blood Count: White Blood Count 10.54 10^3/uL (4.4-10.8) 08/23/22 09:36 Red Blood Count 4.97 10^6/uL (4.36-5.78) 08/23/22 09:36 Hemoglobin 14.3 g/dL (13.5-17.5) 08/23/22 09:36 Hematocrit 42.5 % (40.0-50.0) 08/23/22 09:36 Platelet Count 290 10^3/uL (130-400) 08/23/22 09:36 Complete Metabolic Panel: Sodium 136 mmol/L (136-145) 08/23/22 09:36 Potassium 3.8 mmol/L (3.5-5.1) 08/23/22 09:36 Chloride 100 mmol/L (98-107) 08/23/22 09:36 Carbon Dioxide 28.3 mmol/L (21.0-32.0) 08/23/22 09:36 BUN 21 mg/dL (7-18) H 08/23/22 09:36 Creatinine 0.9 mg/dL (0.70-1.30) 08/23/22 09:36 Est GFR (CKD-EPI 2020) 100.86 (mL/min/1.73m2) 08/23/22 09:36 Calcium 9.3 mg/dL (8.5-10.1) 08/23/22 09:36 Glucose 148 mg/dL (74-106) H 08/23/22 09:36 Hemoglobin A1c 6.6 % (<5.7) H 08/23/22 09:36 Liver Function Panel: No Data to Display Coagulation Panel: No Data to Display Cardiac Panel: No Data to Display Arterial Blood Gas: No Data to Display Venous Blood Gas: No Data to Display Pancreas Panel: No Data to Display Thyroid Panel: No Data to Display Infectious Disease: No Data to Display Blood Cultures: No Data to Display Toxicology Panel: No Data to Display Imaging and Studies Imaging and Studies Study information below may be from another EMR and interpreted by another provider. Please see original notes in EMR for more complete details. EKG Summary: 08/19/22 Sinus rhythm...normal P axis, V-rate 50- 99 Borderline prolonged [place] interval...[place] >202, V-rate 50- 90 Echocardiogram Summary: 02/18/21: [facility]: EF 50%, Normal Valves Cardiac Catheterization Summary: 02/18/21: LAD,Left Cx, RCA disease. CABG was performed. Anesthesia Assessment and Plan Anesthesia History Personal History: No History of Anesthesia Complications Family History: No Family History of Anesthesia Complications Exercise Tolerance Exercise Tolerance: Metabolic Equivalents>4 Pertinent Negatives Pertinent Negatives: No Symptoms of GERD, No Major Cardiovascular Symptoms or Complaints, No Major Pulmonary Symptoms or Complaints and No History of CVA/TIA Cardiac & Pulmonary Exam Cardiac Exam: Normal S1/S2 Heart Sounds Pulmonary Exam: Clear Bilateral Breath Sounds Implantable Cardiac Device Does patient have a Pacemaker or an ICD?: No Airway Exam Known Difficult Airway: No Mallampati Class: 2 Mouth Opening: Normal (> 3cm) Thyromental Distance: Greater than 3 cm Neck Range of Motion: Full ROM Neck Circumference: Normal Teeth Condition: Generalized Poor Dentition and Loose or Chipped (various chipped teeth) ASA Classification ASA Score: ASA 3 Emergency Case?: No NPO Status NPO Status: NPO Clears >2 hours, Solids >8 hours Anesthesia Plan Resuscitation Status: Full Code Anesthesia Technique: General Anesthesia Airway Planned: Natural Airway Monitors Used: Standard Monitors
[2022-08-24] MEDS: Celecoxib 200 MG CAP 400 MG PO (08:59)
[2022-08-24] MEDS: ceFAZolin 2 GM/50 ML BAG IVPB (09:07)
--- NOTE | 2022-08-24 09:53 | W.ANESNERVE ---
Nerve Block Single Injection Procedure Date and Time Date Performed: 08/24/22 Procedure Start: 08:30 Location Where Procedure Performed Procedure Location: Day Surgery Unit Reason Performed: Postoperative Analgesia Requesting Provider: Ramakrishna Tovar Timeout Performed Timeout Performed: Yes Monitoring Used ECG, Blood Pressure, SpO2, ETCO2 and See EMR for corresponding vital signs Sterility Sterility: Hand Hygiene, Surgical Cap, Surgical Mask, Sterile Gloves, Eye Protection and Chlorhexidine Sedation Given During Procedure Sedation Given (Indicate Dose Given): No Sedation given Patient Mental Status Patient Mental Status: Awake Nerve Block 1st Nerve Block: Laterality: Right Block Type: Adductor Canal Needle / Catheter Used: 100mm SonoPlex II Local Anesthetic Bolus (Indicate Dose Given): Lidocaine used for local infiltration of skin and Bupivacaine 0.25% Dose:: 20ML Additives (Indicate Dose Given): None Ultrasound: Sterile probe cover and gel used Ultrasound Image Saved?: Yes Nerve Stimulator: Not Used Paresthesia: None Procedure Tolerated: No Complications Procedure Outcome: Successful Performed By: Danisha Matt Supervised By: Edin Alston
--- NOTE | 2022-08-24 10:30 | W.PM.OP ---
Date of service: 08/24/22 Time of Service: 10:30 Operative Note Operative Note DATE OF PROCEDURE: 08/24/22 PRE-OP DIAGNOSIS: Right Knee Osteoarthritis POST-OP DIAGNOSIS: same PROCEDURE: Right Total Knee Replacement SURGEON: Ramakrishna Tovar RESPIRATORY TECH: Lia Nguyen ANESTHESIA TYPE: General LMA/ETT Refer to Anesthesia Record ESTIMATED BLOOD LOSS: 50 PATHOLOGY: none sent TOURNIQUET TIME: 0 COMPLICATIONS: None Patient was transported to: PACU Patient's condition: stable Implants: 1. Depuy Attune Cementless Cruciate Retaining Femoral Component, Size 7 2. Depuy Attune Cementless Rotating Platform Tibial Component, Size 7 3. Depuy Attune 7x6 CR/RP Poly 4. Depuy Attune Patellar Component, Size 38 Indications: I have seen Carl in clinic for symptoms of knee arthritis, confirmed with radiographic findings. He has exhausted nonoperative methods and was having significant limitations in daily function and desired better function and less pain. I discussed the technical details of a knee replacement. I explained the risks of the procedure to include, but not limited to, bleeding, infection, pain, stiffness, fracture, damage to nerves and vessels, damage to muscles and tendons, loosening, need for repeat procedure, blood clot and cardiopulmonary demise. Despite these risks, Carl elected to proceed. Findings: There was significant signs of arthritis throughout the knee. There were full-thickness troughs of cartilage loss over the medial and lateral distal femur. Procedure Description: Carl was greeted in the preoperative holding area where the correct side was identified and marked. The consent was reviewed with the patient and signed. The history and physical was updated. All questions were answered. Preoperative medications were administered: Acetaminophen 1000mg, Celebrex 400mg, and Gabapentin 300mg. An adductor canal block was then administered by the anesthesia team in the PACU. He was taken back to the operating room. A spinal anesthestic was attempted but not tolerated so a general was administered. The patient was placed into the supine position on the operating room table. Posts were placed for positioning during the procedure. All bony prominences were well padded. Prophylactic antibiotics in the form of Cefazolin were administered. 1g of Tranxemic Acid was given intravenously within 30 minutes of incision. The right leg was then prepped with Chloraprep and draped in a standard fashion with impervious stockinette. A second prep with Chloraprep was performed prior to application of Iodine impregnated skin protection. A timeout to confirm correct identity, side and site, procedure, allergies, anesthesia, and medical concerns was performed. With the knee in some flexion, a midline incision was made overlying the knee. Full thickness skin flaps were raised once the extensor mechanism was encountered. These were raised medially and laterally. Any bleeding was controlled with electrocautery. Once the extensor mechanism was fully exposed, a medial parapatellar arthrotomy was performed in a flexed position. All bleeding from the arthrotomy and the geniculate arteries was coagulated. A medial subperiosteal peel was performed with electrocautery to the midcoronal plane. The fat pad was removed while keeping the patellar tendon protected. The anterior distal femur synovium was removed for later visualization. The ACL and PCL were resected and the anterior horn of the lateral meniscus was transected. The knee was then flexed with the patella everted. Using a step drill, and based on preoperative templating, the femoral canal was entered. This was done with a step drill without any difficulty. The intramedullary distal femoral cut guide was inserted, set to a 5 degree valgus cut and 9mm cut thickness. The distal femoral cut guide was then held in position and pinned. With the soft tissues protected, the distal cut was performed. This was passed over a few times to ensure a planar cut. I then turned attention to the tibia. The extramedullary guide was placed onto the leg. The distal aspect was slid medial to adjust for position of center of ankle and stay in line with shaft of the tibia. Approximately 5 degrees of posterior slope was kept in the proximal cutting guide. The center of the guide was aligned with the PCL. The stylus was used to assess cut thickness. The medial side was set for a 7mm cut, corresponding to the same laterally. This was then held in position and pinned into place with 2 additional pins and a cross pin for stability. The medial and lateral collateral ligaments were protected and the cut was performed. With this completed, it was assessed and noted to be of appropriate dimensions. The guide was removed. A spacer block was inserted and the knee was brought into extension. The 6mm spacer block provided full extension, without hyperextension and with stability of both the medial and lateral collateral ligaments was assessed. The pins from the femur and the tibia were then removed. The distal femur was then sized. The anterior stylus was placed onto the lateral ridge of the anterior femur. This indicated a size 7 femur. The external rotation of the guide was adjusted to 0 degrees to match the epicondylar axis, perpendicular to [place]?s line and balance flexion gap. The 4-in-1 cutting guide was the placed. The posterior medial femur cut was evaluated and appeared of good thickness. The spacer block was inserted underneath the cutting guide and stability was confirmed in 90 degrees of flexion. An alec wing was used to confirm appropriate position of the anterior cut to avoid notching. This cutting guide was ensured to be flush on the cut surface and then pinned into place with headed pins. While protecting the soft tissues, quad tendon, and collateral ligaments, the anterior and posterior cuts were performed with a saw. The central two pins were removed and the posterior and anterior chamfers were cut next. The notch-cutting guide was placed. This was pinned to lateralize the femoral component as much as possible while keeping it flush on the cut surface. This was then pinned into position. A reciprocating saw was used to make the notch cut. A rasp smoothed the cut surfaces. The medial and lateral menisci were removed. A trial femoral component was then inserted, impacted down to the cut surfaces, and the lug holes were drilled. A provisional trial tibial component was placed and the knee was brought through range of motion. There was noted to be excellent extension and flexion. There was no significant instability. The patella was tracking without thumbs. A size 6mm polyethylene component provided the best range of motion and stability with less than 2mm gapping with medial and lateral stress and full extension without significant hyperextension. The tibial cut surface was fully exposed. The tibia was then sized as a 7. The tibia had been previously marked during trialing to correspond to the center of the tibial component to help with rotation. The trial was aligned to this zofia, approximately rotated to the medial 1/3rd of the tibial tubercle. The trial was pinned into place. The tibia was prepared with a reamer and a keel punch and lug holes. The knee was then brought into extension and the patella was measured as 27mm. Using the patellar clamp and cut guide, this was resected to a flat surface with at least 13mm of thickness remaining. The size 38 patella fit the best. This was oriented and then clamped into position. The lugs were drilled. The trial components were removed. The final components were opened on the back table. The periosteal and capsular tissues, especially posteriorly, around the knee were then systematically injected with a periarticular cocktail consisting of 246mg of Ropivacaine, 0.5mg of Epinephrine, 0.08mg of Clonidine, and 30mg of Ketorolac, diluted to 100cc. On the back table, with the implants opened, the cement was mixed. One batch of high viscosity cement was prepared with vacuum assistance. After the cement was ready a small amount was placed on the cut surface of the patella and the patellar button was clamped into position and held. While the cement was hardening, the cementless knee components were placed. Starting with the tibial component, the tibia was subluxed anteriorly and the lug holes of the component were lined up. The tibia was then impacted with an impactor and mallet until the tibial component was in contact with the tibia. The final polyethylene component was inserted. Then, the femoral component was inserted. The lug holes were aligned and the component was impacted into position. The knee was irrigated with Surgiphor Betadine solution. This was allowed to sit in the knee for 3 minutes and then it was irrigated out with saline. After the cement had finally cured, approximately 15min, the clamp was removed from the patella and the knee was taken through range of motion. The patella was tracking with a no-thumbs technique. The capsule was then reapproximated with a No. 1 Vicryl at multiple locations. The capsule was finally closed with a No. 2 Stratafix, barbed suture. The second dosing of 1g TXA was started. Deep tissues were then reapproximated with 0 Vicryl and 2-0 Vicryl. The skin was closed with a running 3-0 Monocryl in a subcuticular fashion. This was reinforced with skin glue. A Mepilex silver dressing was applied along with a [id number] ADVID wrap. A CryoCuff was applied. Carl was transferred to the hospital bed without difficulty an suffering no apparent complication. Carl has a good prognosis. Physical therapy will start today and without restrictions, weight-bearing as tolerated. Aspirin 81mg BID will be used for DVT prophylaxis.
[2022-08-24] MEDS: HYDROmorphone 2 MG/ML SYR IVP ×2 (11:38→11:56)
[2022-08-24] MEDS: Normal Saline 10 ML VIAL IJ (11:41)
[2022-08-24] MEDS: oxyCODONE 5 MG TAB PO (12:38)
--- NOTE | 2022-08-24 13:13 | PT.INIE ---
Date of service: 08/24/22 Time of Service: 13:13 PT Notes Visit Reasons: Right knee DJD Physical Therapy Day Surgery Initial Evaluation Date: 08/24/2022 Referring Doctor: VISHNU Pruitt PT Orders: PT CONSULT: S/p Ortho surgery Precautions: WBAT on R LE on with AD. Patient Profile/Admitting Diagnosis: Patient is a 56-year-old male with degenerative joint disease of the R knee and is S/P right total knee arthroplasty on postoperative day 0. PMHX: Medical History? History of scoliosis Non-STEMI (non-ST elevated myocardial infarction) 02/18/21 [facility] Seizure Surgical History? 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 Uses no AD prior to surgery. Smokes half a ack of cigarettes per day. Occasional alcoholic beverage drinker. Equipment Owned/DME: FWW, [facility] Subjective: I just want to go home and get a smoke. Agreebale to PT consult. Reports 8/1- pain in the R knee with movement. Denies headache, chest pain, and lightheadedness. Objective: General Observation: Supine in stretcher. TEDS to L leg. DAVID wrap to R LE. present throughout session. Mental Status: A and O x 4 Pain: 8/-9/10 in the R knee with movement and weight bearing ROM: Right Lower Extremity: Hip flexion WFL. Hip abduction WFL. Knee flexion 0-90 degrees. Knee extension 90-0 degrees. Ankle dorsiflexion WFL. Ankle plantarflexion WFL. Able to do x 5 straight leg raises to about 45 degrees before onset of discomfort. Left Lower Extremity: Hip flexion WFL. Hip abduction WFL. Knee flexion WFL. Ankle dorsiflexion WFL. Ankle plantarflexion WFL. Strength: Right Lower Extremity: Hip flexors 4/5. Hip abductors 4/5. Knee flexors 3-/5. Knee extensors 3-/5. Ankle dorsiflexors 5/5. Ankle plantarflexors 5/5. Left Lower Extremity:Hip flexors 5/5. Hip abductors 5/5. Knee flexors 5/5. Knee extensors 5/5. Ankle dorsiflexors 5/5. Ankle plantarflexors 5/5. Sensation: Intact as to pain and pressure in B LE Bed Mobility/Transfers: Supine to sit standby assist Sit to stand contact-guard assist standby assist Stand to sit standby assist Bed to chair standby assist Gait: 100 feet using FWW with stand by assist with decreased bending in R knee. Reports 8-9/10 pain in the R knee. Nurse Ofelia aware of pain report. Balance: Static Sitting: Normal Dynamic Sitting: Normal Static Standing: Fair Dynamic Standing: Fair Special Tests: Mobility Limitations Standardized Measure [facility] 6 clicks Basic Mobility Inpatient Short Form: Raw Score: 21 CMS Score: 29% deficit Informed Consent/Education: Patient instructed in purpose of PT consult. Packet containing TKA exercise protocol has been given to patient. Education and training on initial set of exercises that can be done at home have been completed with patient. Assessment: Pain limited R knee AROM and ambulation distance today. works during the day but patient may be able to manage indoor ambulation using FWW. Patient presents with clinical signs and symptoms consistent with current/admitting diagnoses that have resulted to mobility limitations, gait instability, generalized weakness, and impairment of motor control as demonstrated by the following impairment level findings: 1. Decreased strength to right knee major muscle groups 2. Impaired standing balance 3. Limitation of joint range of motion in right knee Impairments are contributing to the following functional limitations: 1. Inability to safely ambulate without assistive device 2. Increase completion time for mobility ADL performance 3. Increased fall risk Patient is assessed as a 79575 moderate complexity based on the following: History: 56-year-old male with impairment level findings, functional limitations, and past medical history as indicated above Examination: Demonstrable impairment in strength, balance, and mobility level with underlying impairments and functional limitations as documented above Presentation: Evolving Decision Makin moderate complexity Goals: N/A. PT evaluation and 1-2 treatment sessions only for functional mobility training using recommended AD and for HEP instruction. Plan of Care/Treatment Plan: N/A. PT evaluation and 1-2 treatment session only for functional mobility training using recommended AD and for HEP instruction. DISCHARGE RECOMMENDATIONS: [] Home with no services [] [] Home with services [specify] [X] Home with outpatient PT. Home when medically cleared by orthopedic surgeon. Will benefit from outpatient PT services to maximize functional mobility outcomes and community ambulation without an assistive device. [] SNF for continued rehabilitation [] [] Alf Care [] [] SNF versus LTC based on ability to participate and progress [] TREATMENT CODE/TIME: 67040 x [id number], [id number] 13 minutes beginning at 13:13 PM. Thank you for the opportunity to participate in the care of this patient. Pilar Layton PT, DPT, CLT [facility] [place], [place]
--- NOTE | 2022-08-24 15:36 | W.ANESPOSTOP ---
Postoperative Evaluation Date, Time and Location Date Performed: 08/24/22 Time Performed: 13:10 Patient Location: Day Surgery Unit Vital Signs Most Recent Imported Vital Signs: Most Recent Vital Signs Temp Pulse Resp BP Pulse Ox 36.6 C 60 17 102/71 98 08/24/22 13:00 08/24/22 13:00 08/24/22 12:21 08/24/22 13:00 08/24/22 13:00 Pain Score Most Recent Pain Score: Most Recent Pain Score Pain Level 6 08/24/22 13:00 Assessment Mental Status: Awake (Alert & Oriented to Patient Baseline) Airway and Respiratory Function: Patent airway with normal (patient baseline) respiratory exam Cardiovascular Function: Hemodynamically Stable Hydration Status: Adequately Hydrated Nausea & Vomiting: No Nausea or Vomiting Pain: Pain is tolerable per patient Peripheral Nerve Block: Regional nerve block not resolved at time of post operative discharge
== END 2022-08-24 14:22 | disposition home or self-care (01) ==
PROVIDERS: PCP Nurse Practitioner Adult Health; Visit Provider Student in an Organized Health Care Education/Training Program
PROC: (CPT 27447; principal; 2022-08-24 09:30)
DX: M17.11 Unilateral primary osteoarthritis, right knee (principal); M94.261 Chondromalacia, right knee; E11.9 Type 2 diabetes mellitus without complications; I10 Essential (primary) hypertension; F17.210 Nicotine dependence, cigarettes, uncomplicated
CPT/HCPCS: 27447; C1776; 76942; 97110; 97162; J0690; J1100; J1170; J2250; J2405; J2704

== ENCOUNTER 2022-09-06 09:17 | Outpatient (CLI) | payer MEDICARE, MEDICAID, SELFPAY ==
--- NOTE | 2022-09-06 08:47 | DI.RAD_ITS ---
Exam(s) XR KNEE RT 1V XR STANDING ALIGNMENT EXAM: XR STANDING ALIGNMENT CLINICAL HISTORY: s/p right TKA. TECHNIQUE: 2D digital imaging was performed. Standing AP views were performed from the pelvis throu gh the ankles. Lateral view right knee COMPARISON: CR XR STANDING ALIGNMENT from 08/12/2022 CR XR KNEE RT 1V from 09/06/2022 FINDINGS: BONES: No acute fracture is present. No bony destructive lesion is seen. Leg length discrepancy: No significant JOINTS: Knees: Right knee prosthesis is unremarkable. The left knee shows no significant joint space narrowing. The ankle joints are unremarkable. The hip joints are maintained. Mild acetabular spurring. SOFT TISSUE: There are surgical clips in the soft tissues of the medial right knee as well as medial right ankle. There is soft tissue edema greatest at the ankle. IMPRESSION: Status post right total knee prosthesis No significant leg length discrepancy. DATA REPOSITORY: RADIATION DOSE DELIVERED:
== END 2022-09-06 09:18 | disposition home or self-care (01) ==
PROVIDERS: PCP Nurse Practitioner Adult Health; Referring Provider Nurse Practitioner Adult Health; Visit Provider Student in an Organized Health Care Education/Training Program
DX: Z96.651 Presence of right artificial knee joint (principal); Z47.1 Aftercare following joint replacement surgery
CPT/HCPCS: 73560; 77073

== ENCOUNTER → 2022-10-04 08:00 | Outpatient (BNVA) | payer MEDICARE, MEDICAID, SELFPAY | PROVIDERS: PCP Nurse Practitioner Adult Health; Referring Provider Nurse Practitioner Adult Health; Visit Provider Student in an Organized Health Care Education/Training Program | DX: Z47.1 Aftercare following joint replacement surgery (principal); Z96.651 Presence of right artificial knee joint ==

== ENCOUNTER → 2022-10-18 12:32 | Outpatient (BNVA) | payer MEDICARE, MEDICAID, SELFPAY | PROVIDERS: PCP Nurse Practitioner Adult Health; Referring Provider Nurse Practitioner Adult Health; Visit Provider Physician Assistant | DX: Z47.1 Aftercare following joint replacement surgery (principal); Z96.651 Presence of right artificial knee joint ==

== ENCOUNTER → 2022-10-25 07:56 | Outpatient (BNVA) | payer MEDICARE, MEDICAID, SELFPAY | PROVIDERS: PCP Nurse Practitioner Adult Health; Referring Provider Nurse Practitioner Adult Health; Visit Provider Physician Assistant | DX: Z47.1 Aftercare following joint replacement surgery (principal); Z96.651 Presence of right artificial knee joint ==

== ENCOUNTER → 2022-11-22 08:19 | Outpatient (BNVA) | payer MEDICARE, MEDICAID, SELFPAY | PROVIDERS: PCP Nurse Practitioner Adult Health; Referring Provider Nurse Practitioner Adult Health; Visit Provider Student in an Organized Health Care Education/Training Program | DX: Z47.1 Aftercare following joint replacement surgery (principal); Z96.651 Presence of right artificial knee joint ==

== ENCOUNTER 2023-05-17 19:04 | Outpatient (REF) | payer MEDICARE, MEDICAID, SELFPAY ==
[2023-05-17 23:13] LABS: Rheumatoid Factor 209.2 IU/mL (<12.0)
[2023-05-18 09:35] LABS: Cyclic Citrullinated Peptide >200.0 U/mL (<5.0)
[2023-05-18 13:55] LABS: ANA Interpretation Negative (Negative)
== END 2023-05-17 19:05 | disposition home or self-care (01) ==
LOC: LBN 19:04
PROVIDERS: PCP Nurse Practitioner Adult Health; Visit Provider Physician Assistant Surgical
DX: R93.89 Abnormal findings on diagnostic imaging of other specified body structures (principal)
CPT/HCPCS: 86200; 86038; 86431

== ENCOUNTER → 2023-06-17 00:58 | Outpatient (CLI) | payer OTHER, MEDICAID, SELFPAY ==
--- NOTE | 2023-06-17 07:45 | DI.CT_ITS ---
Exam(s) CT CHEST WO EXAM: CT CHEST WO CLINICAL HISTORY: F/U ABNL CT, R93.89 TECHNIQUE: Imaging Protocol: Axial computed tomography images with coronal and sagittal reformatted images were created and reviewed CONTRAST MATERIAL: Intravenous: Omnipaque 350 Contrast volume:structured data ml. COMPARISON: CT CHEST ABD WITH CONTRAST from 11/10/[address] CAP W CONTRAST* from 04/14/2023 FINDINGS: Pulmonary parenchyma: Interval clearing of previously noted right upper lobe infiltrate. No dominant measurable mass. Mild emphysematous changes at the apices. Mild fibrotic changes at the lung base s peripherally. Tracheobronchial tree: No bronchiectasis or mucous plugging. Mediastinum and Consuelo: No dominant adenopathy or fluid collection. Pleura: No effusion or pneumothorax. Heart: The heart is mildly dilated. Status post CABG. Aorta: Thoracic aorta non-dilated. Mild atherosclerotic changes. Upper abdomen: Unremarkable. Bones: Mild degenerative changes in the spine. Sternal wires. Soft tissues: Unremarkable. IMPRESSION: Interval clearing of previously noted right upper lobe infiltrate. RADIATION DOSE DELIVERED: 389.37mGy.cm Total DLP DATA REPOSITORY: All CT scans at this facility are submitted to the National Radiology Data Registry (NRDR) Dose Index Registry (DIR) with the [employer] (A[employer]). RADIATION OPTIMIZATION: All CT scans at this facility use at least one of these dose optimization te chniques: automated exposure control; mA and/or kV adjustment per patient size (includes targeted exa ms where dose is matched to clinical indication); or iterative reconstruction.
== END ==
PROVIDERS: PCP Nurse Practitioner Adult Health; Visit Provider Physician Assistant Surgical
DX: R93.89 Abnormal findings on diagnostic imaging of other specified body structures (principal)
CPT/HCPCS: 71250

== ENCOUNTER 2023-07-26 14:44 | Emergency (ER) | payer MEDICARE, MEDICAID, SELFPAY ==
--- NOTE | 2023-07-26 14:45 | DI.RAD_ITS ---
Exam(s) XR RIBS RT W PA LAT CHEST EXAM: XR RIBS RT W PA LAT CHEST CLINICAL HISTORY: right rib pain TECHNIQUE: 2D digital imaging was performed.Six images were obtained. COMPARISON: No exams were available for comparison FINDINGS: MEDIASTINUM: Normal. HEART: Normal. Status post CABG. PULMONARY VASCULATURE: Normal. LUNGS: Clear. PLEURAL SPACE: No pleural effusion or pneumothorax. BONE:Normal. RIGHT RIBS: Normal. OTHER FINDINGS:Normal. IMPRESSION: 1. No acute pulmonary findings. 2. Unremarkable right ribs. DATA REPOSITORY: RADIATION DOSE DELIVERED:
[2023-07-26 14:47] VITALS: BP 111/76; PULSE 72; RESP 18; TEMP 37.2; O2SAT 100
[2023-07-26] MEDS: oxyCODONE 5 MG TAB PO (15:05)
--- NOTE | 2023-07-26 15:28 | ED.GENADUL_ITS ---
Discharge Plan Disposition Patient Disposition: Home Discharge Details Clinical Impression: Contusion of rib Primary Care Provider: Edilia Infante ED Provider: La Nena James Home Meds and New Rx's Prescriptions: New cyclobenzaprine 10 mg tablet 10 mg PO TID PRNQty: 10 0RF Continued nitroglycerin 0.4 mg tablet, sublingual 0.4 mg sublingual ONCE Rx Instructions: as a single dose; administer 5-10 minutes before situation known to precipitate angina attack amlodipine 5 mg tablet 5 mg PO DAILY multivitamin Tablet 1 tab PO DAILY cetirizine 10 mg tablet 10 mg PO DAILY PRN mometasone 0.1 % cream 1 applic topical DAILY Qty: 15 1RF meloxicam 15 mg tablet 15 mg PO DAILY Qty: 30 3RF semaglutide 0.25 mg or 0.5 mg(2 mg/1.5 mL) pen injector 0.25 mg subcut QWEEK venlafaxine 75 mg tablet 150 mg PO DAILY tadalafil 5 mg tablet 5 mg PO DAILY metoprolol tartrate 50 mg tablet 50 mg PO BID aspirin 81 mg tablet,delayed release (DR/EC) 81 mg PO DAILY amoxicillin-pot clavulanate 875-125 mg tablet 1 tab PO BID hydrocortisone 2.5 % ointment 1 applic topical BID PRN methocarbamol 500 mg tablet See Rx Instructions PO TID PRN Rx Instructions: 1-2tabs orally three times a day PRN; mupirocin 2 % ointment 1 applic topical .4xday probiotic See Rx Instructions .ROUTE DIRECTED Rx Instructions: as directed; Spiriva Respimat 1.25 mcg/actuation mist 2 puff inhalation DAILY Qty: 4 6RF albuterol sulfate [Ventolin HFA] 90 mcg/actuation HFA aerosol inhaler 2 puff inhalation QID PRN (Reason: shortness of breath or wheezing) Qty: 18 4RF acetaminophen 500 mg tablet 1,000 mg PO Q8H PRN Qty: 90 0RF Rx Instructions: Take two tablets up to every 8 hours as needed for pain docusate sodium [Colace] 100 mg capsule 100 mg PO BID Qty: 30 0RF Discharge Instructions Instructions: Rib Contusion (ED) Additional Instructions: Please follow-up with Discharge Data Discharge Date/Time-TO BE ENTERED AT DEPARTURE: 07/26/23 16:07 Medical Decision Making 57-year-old male presenting with right rib pain after slip and fall onto a bureau, denies any additional injuries. Exam with abrasion to right chest wall, lungs clear to auscultation, no crepitus, no flail chest, no abdominal tenderness or visible evidence of trauma, neurovascularly intact Chest x-ray does not show evidence of acute abnormality per radiology interpretation my review, no hypoxia, tachypnea, small abrasion noted, tetanus up-to-date Encourage deep breathing exercises at home 4 tablets of oxycodone supplied Return precautions reviewed and patient expressed understanding Pneumonia precautions reviewed HPI General Date/Time Provider Initiated Documentation: 07/26/23 14:54 . HPI Narrative: This 57-year-old male presents with report of slip and fall into a bureau, tenderness to right chest wall. Denies any additional injuries. Denies any abdominal pain, nausea, vomiting, or shortness of breath. Related Data Home Medications Medication Instructions Recorded Confirmed semaglutide 0.25 mg or 0.5 mg (2 0.25 mg subcut QWEEK 07/16/21 05/17/23 mg/1.5 mL) subcutaneous pen injector venlafaxine 75 mg tablet 150 mg PO DAILY 07/16/21 05/17/23 metoprolol tartrate 50 mg tablet 50 mg PO BID 04/01/22 05/17/23 tadalafil 5 mg tablet 5 mg PO DAILY 04/01/22 05/17/23 nitroglycerin 0.4 mg sublingual 0.4 mg sublingual ONCE 04/07/22 05/17/23 tablet amlodipine 5 mg tablet 5 mg PO DAILY 04/28/22 05/17/23 cetirizine 10 mg tablet 10 mg PO DAILY PRN 04/28/22 05/17/23 mometasone 0.1 % topical cream 1 applic topical DAILY #15 grams 04/28/22 11/22/22 multivitamin 1 tab PO DAILY 04/28/22 05/17/23 acetaminophen 500 mg tablet 1,000 mg PO Q8H PRN pain #90 tabs 08/24/22 05/17/23 docusate sodium 100 mg capsule 100 mg PO BID #30 caps 08/24/22 11/22/22 (Colace) meloxicam 15 mg tablet 15 mg PO DAILY #30 tabs 10/04/22 11/22/22 amoxicillin 875 mg-potassium 1 tab PO BID 04/22/23 clavulanate 125 mg tablet aspirin 81 mg tablet,delayed 81 mg PO DAILY 04/22/23 05/17/23 release hydrocortisone 2.5 % topical 1 applic topical BID PRN 04/22/23 ointment methocarbamol 500 mg tablet See Rx Instructions PO TID PRN 04/22/23 05/17/23 mupirocin 2 % topical ointment 1 applic topical .4xday 04/22/23 probiotic See Rx Instructions .Route 04/22/23 DIRECTED Ventolin HFA 90 mcg/actuation 2 puff inhalation QID PRN 05/18/23 aerosol inhaler (albuterol sulfate) shortness of breath or wheezing #18 grams tiotropium bromide 1.25 2 puff inhalation DAILY #4 grams 05/18/23 mcg/actuation mist for inhalation (Spiriva Respimat) cyclobenzaprine 10 mg tablet 10 mg PO TID PRN #10 tabs 07/26/23 Previous Rx's Medication Instructions Recorded mometasone 0.1 % topical cream 1 applic topical DAILY #15 grams 04/28/22 acetaminophen 500 mg tablet 1,000 mg PO Q8H PRN pain #90 tabs 08/24/22 docusate sodium 100 mg capsule 100 mg PO BID #30 caps 08/24/22 (Colace) meloxicam 15 mg tablet 15 mg PO DAILY #30 tabs 10/04/22 Ventolin HFA 90 mcg/actuation 2 puff inhalation QID PRN 05/18/23 aerosol inhaler (albuterol sulfate) shortness of breath or wheezing #18 grams tiotropium bromide 1.25 2 puff inhalation DAILY #4 grams 05/18/23 mcg/actuation mist for inhalation (Spiriva Respimat) cyclobenzaprine 10 mg tablet 10 mg PO TID PRN #10 tabs 07/26/23 Allergies Allergy/AdvReac Type Severity Reaction Status Date / Time lidocaine Allergy Unknown Verified 05/17/23 11:22 ibuprofen Allergy eyes Verified 05/17/23 11:22 swell up tramadol AdvReac Severe seizures Verified 05/17/23 11:22 [email or web address] [From Chantix] AdvReac Severe Suicidal Verified 07/11/23 10:46 Ideation lactose AdvReac Intermediate Verified 05/17/23 11:22 prochlorperazine AdvReac freak out Verified 05/17/23 11:22 [From Compazine] prochlorperazine edisylate AdvReac freak out Verified 05/17/23 11:22 [From Compazine] prochlorperazine maleate AdvReac freak out Verified 05/17/23 11:22 [From Compazine] General Stated Complaint: Chest/Rib TOY: 3 PFSH All Active Problems (Updated 07/26/23 @ 15:38 by VISHNU Ivan) Contusion of rib (Acute) Rheumatoid arthritis (Chronic) UIP (usual interstitial pneumonitis) (Acute) Abnormal CT of the chest (Acute) Nicotine dependence, cigarettes, uncomplicated (Acute) Bereavement (Acute) Lateral epicondylitis (Acute) Lower back pain (Acute) Chronic neck pain (Acute) Eczema (Acute) Otalgia (Acute) Restless legs syndrome (Acute) Impotence (Acute) Anxiety (Chronic) History of total right knee replacement (Acute 08/24/22) Diabetes mellitus (Chronic) CAD (coronary artery disease) (Chronic) Hyperlipidemia (Acute) Smoker (Acute) Hypertension (Chronic) Chronic low back pain (Acute) Depression with anxiety (Acute) Erectile dysfunction (Acute) BPH (benign prostatic hyperplasia) (Chronic) Chronic eczematoid otitis externa of both ears (Acute) Sensorineural hearing loss (SNHL) of both ears (Acute) Preoperative cardiovascular examination (Acute) Medical History (Updated 07/26/23 @ 15:38 by VISHNU Ivan) Arteriosclerosis of arterial coronary artery bypass graft Fever History of scoliosis Homelessness Hx of gastrointestinal disease Hx of infectious disease Non-STEMI (non-ST elevated myocardial infarction) 02/18/21 [facility] Organ-space surgical site infection Seizure Per pt. states this is related to his allergy to tramado, which causes seizures Slowing of urinary stream Surgical History (Updated 04/22/23 @ 10:00 by Theodora Tran) History of tonsillectomy Hx of hand surgery scaphoid bone surgery, screws Dr. 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 [facility] Had CHB s/p surgery which has since resolved Family History (Updated 04/22/23 @ 09:59 by Theodora Tran) Mother , age 68 COPD (chronic obstructive pulmonary disease) Emphysema/COPD Father , mid 40's Diabetes Paternal Grandfather Heart disease Myocardial infarction Paternal Grandmother , age 80 No problems noted. Daughter Diabetes Daughter Diabetes Social History Smoking/Tobacco Use Status: Current every day Tobacco Type: cigarettes Years smoked: 44 Smoking risk assessment performed?: Yes Alcohol Intake: never Drug use: Never Substance use type: does not use current occupation: disabled Pets and animals: Yes Pets and animals: cat(s) Current gender identity: male What is your relationship status?: Panel score (0-1 are the most socially isolated patients): 0 Do you feel safe at home: Yes Do you feel safe in your relationship?: Yes Course Vital Signs Vital signs: Vital Signs Temperature 37.2 C 07/26/23 14:47 Pulse 72 07/26/23 14:47 Respiratory Rate 18 07/26/23 14:47 Blood Pressure 111/76 07/26/23 14:47 Pulse Oximetry 100 07/26/23 14:47 Temperature 37.2 C 07/26/23 14:47 Temperature Source Oral 07/26/23 14:47 Pulse 72 07/26/23 14:47 Respiratory Rate 18 07/26/23 14:47 Respiratory Effort Normal, Non-Labored 07/26/23 15:06 Respiratory Depth Normal 07/26/23 15:06 Respiratory Pattern Normal 07/26/23 15:06 Blood Pressure 111/76 07/26/23 14:47 Blood Pressure Position Sitting 07/26/23 14:47 Pulse Oximetry 100 07/26/23 14:47 Oxygen Delivery Method Room Air 07/26/23 14:47 Oxygen Flow Rate 0 07/26/23 14:47 Pain Level 8 07/26/23 15:06
== END 2023-07-26 16:07 | disposition home or self-care (01) ==
LOC: ER 16:01
PROVIDERS: Emergency Provider Physician Assistant; PCP Nurse Practitioner Adult Health
DX: S20.311A Abrasion of right front wall of thorax, initial encounter (principal); I10 Essential (primary) hypertension; I25.10 Atherosclerotic heart disease of native coronary artery without angina pectoris; I25.2 Old myocardial infarction; M06.9 Rheumatoid arthritis, unspecified; Z95.1 Presence of aortocoronary bypass graft; Z79.899 Other long term (current) drug therapy; W01.190A Fall on same level from slipping, tripping and stumbling with subsequent striking against furniture, initial encounter; Y93.01 Activity, walking, marching and hiking
CPT/HCPCS: 99283; 71046; 71100

== ENCOUNTER 2023-08-19 09:04 | Outpatient (CLI) | payer MEDICARE, MEDICAID, SELFPAY ==
--- NOTE | 2023-08-19 08:43 | DI.RAD_ITS ---
Exam(s) XR KNEE RT 2V AP,LAT EXAM: XR KNEE RT 2V AP,LAT CLINICAL HISTORY: ANNUAL F/U R TKA. TECHNIQUE: 2D digital imaging was performed. Three views. COMPARISON: CR XR KNEE RT 1V from 09/06/2022 CR XR STANDING ALIGNMENT from 09/06/2022 FINDINGS: BONES: No acute fracture is present. No bony destructive lesion is seen. Small patellar enthesophyt es. Tiny enthesophyte at tibial tubercle. JOINTS: The total knee prosthesis is normally aligned. No joint effusion is seen. SOFT TISSUE: Surgical clip seen in medial soft tissues. Mild vascular calcifications. IMPRESSION: Stable appearance of total knee prosthesis. DATA REPOSITORY: RADIATION DOSE DELIVERED:
--- NOTE | 2023-08-19 08:43 | DI.RAD_ITS ---
Exam(s) XR KNEE LT 3V AP,LAT,MAGALIS EXAM: XR KNEE LT 3V AP,LAT,MAGALIS CLINICAL HISTORY: LEFT KNEE PAIN. TECHNIQUE: 2D digital imaging was performed. Three views. COMPARISON: CR XR KNEE RT 1V from 09/06/2022 CR XR STANDING ALIGNMENT from 09/06/2022 CR XR KNEE RT 2V AP,LAT from 08/19/2023 FINDINGS: BONES: No acute fracture is present. No bony destructive lesion is seen. Small enthesophytes at pa tella and tibial tubercle. JOINTS: The joint spaces are maintained. Mild spurring at the articular aspect of patella. The knee is normally aligned. No joint effusion is seen. SOFT TISSUE: Normal. IMPRESSION: Mild degenerative changes. DATA REPOSITORY: RADIATION DOSE DELIVERED:
--- NOTE | 2023-08-19 09:01 | DI.RAD_ITS ---
Exam(s) XR HIP LT COMPLETE AP PELVIS EXAM: XR HIP LT COMPLETE AP PELVIS CLINICAL HISTORY: LEFT KNEE PAIN. TECHNIQUE: 2D digital imaging was performed. Two views. COMPARISON: No exams were available for comparison FINDINGS: BONES: No acute fracture is present. No bony destructive lesion is seen. JOINTS: No dislocation present. Hip joint spaces are maintained. Mild bilateral acetabular spurri ng. Mild degenerative changes of the SI joints. SOFT TISSUE: Normal. IMPRESSION: Mild degenerative changes. DATA REPOSITORY: RADIATION DOSE DELIVERED:
== END 2023-08-19 09:05 | disposition home or self-care (01) ==
LOC: DIORS 09:06
PROVIDERS: PCP Nurse Practitioner Adult Health; Referring Provider Nurse Practitioner Adult Health; Visit Provider Student in an Organized Health Care Education/Training Program
DX: Z96.651 Presence of right artificial knee joint (principal); M23.92 Unspecified internal derangement of left knee; M25.852 Other specified joint disorders, left hip
CPT/HCPCS: 20610; 73562; 99213; 73502; 73560; J1040

== ENCOUNTER 2023-08-19 14:17 | Emergency (ER) | payer MEDICARE, MEDICAID, SELFPAY ==
[2023-08-19 14:21] VITALS: BP 126/91; PULSE 84; RESP 15; TEMP 36.6; O2SAT 100
[2023-08-19 15:13] VITALS: BP 126/91; PULSE 84; RESP 15; TEMP 36.6; O2SAT 100
--- NOTE | 2023-08-19 15:20 | ED.GENADUL_ITS ---
Discharge Plan Disposition Patient Disposition: Home Condition: Stable Discharge Details Clinical Impression: Pain, dental, Dental infection Primary Care Provider: Edilia Infante ED Provider: Temo Strickland Home Meds and New Rx's Prescriptions: New penicillin V potassium 500 mg tablet 500 mg PO QID Qty: 55 0RF Continued nitroglycerin 0.4 mg tablet, sublingual 0.4 mg sublingual ONCE Rx Instructions: as a single dose; administer 5-10 minutes before situation known to precipitate angina attack amlodipine 5 mg tablet 5 mg PO DAILY multivitamin Tablet 1 tab PO DAILY cetirizine 10 mg tablet 10 mg PO DAILY PRN mometasone 0.1 % cream 1 applic topical DAILY Qty: 15 1RF meloxicam 15 mg tablet 15 mg PO DAILY Qty: 30 3RF semaglutide 0.25 mg or 0.5 mg(2 mg/1.5 mL) pen injector 0.25 mg subcut QWEEK venlafaxine 75 mg tablet 150 mg PO DAILY tadalafil 5 mg tablet 5 mg PO DAILY metoprolol tartrate 50 mg tablet 50 mg PO BID aspirin 81 mg tablet,delayed release (DR/EC) 81 mg PO DAILY hydrocortisone 2.5 % ointment 1 applic topical BID PRN methocarbamol 500 mg tablet See Rx Instructions PO TID PRN Rx Instructions: 1-2tabs orally three times a day PRN; mupirocin 2 % ointment 1 applic topical .4xday Spiriva Respimat 1.25 mcg/actuation mist 2 puff inhalation DAILY Qty: 4 6RF albuterol sulfate [Ventolin HFA] 90 mcg/actuation HFA aerosol inhaler 2 puff inhalation QID PRN (Reason: shortness of breath or wheezing) Qty: 18 4RF acetaminophen 500 mg tablet 1,000 mg PO Q8H PRN Qty: 90 0RF Rx Instructions: Take two tablets up to every 8 hours as needed for pain Discharge Instructions Instructions: Toothache (ED) Additional Instructions: Please take full course of antibiotic as prescribed. Please follow-up with your dentist. Call tomorrow to schedule timely follow-up. Please take acetaminophen (tylenol) - 650mg every 6 hours by mouth as needed for pain. Return to the ER immediately for any worsening or new concerning symptoms. Referrals: Edilia Infante [Primary Care Provider] - Medical Decision Making 57-year-old male smoker here with dental pain tooth #1 over the past 2 days. To oth does have dental caries. No associated facial swelling or palpable fluctuance along the gumline. Patient is afebrile and otherwise well-appearing. Patient notes he has been using regular doses of Tylenol without relief. He states he cannot take ibuprofen because it has irritated his stomach lining the past. He notes he is allergic to tramadol. I offered periapical dental block and patient declined. I will give patient Toradol IM and initiate course of penicillin. I stressed the importance of outpatient follow-up with his dentist and advised to call tomorrow to schedule timely follow-up. He was encouraged to return should you have any worsening or new concerning symptoms. HPI General Mode of arrival: ambulatory . Date/Time Provider Initiated Documentation: 08/19/23 14:51 . Limitations to Documentation: no limitations . Information obtained by: patient . History of Present Illness 57 year old M presents to the emergency department with the chief complaint of dental pain, described as severe, Quality is described as constant, Patient reports no radiation. Patient started experiencing this day(s) (2) and it has been constant. No relieving factors improve symptom(s), Other factors that worsen symptoms (touching tooth) . Patient notes no other symptoms.. Patient did receive the following treatments prior to arrival, other (tylenol ) Related Data Home Medications Medication Instructions Recorded Confirmed semaglutide 0.25 mg or 0.5 mg (2 0.25 mg subcut QWEEK 07/16/21 08/19/23 mg/1.5 mL) subcutaneous pen injector venlafaxine 75 mg tablet 150 mg PO DAILY 07/16/21 08/19/23 metoprolol tartrate 50 mg tablet 50 mg PO BID 04/01/22 08/19/23 tadalafil 5 mg tablet 5 mg PO DAILY 04/01/22 08/19/23 nitroglycerin 0.4 mg sublingual 0.4 mg sublingual ONCE 04/07/22 08/19/23 tablet amlodipine 5 mg tablet 5 mg PO DAILY 04/28/22 08/19/23 cetirizine 10 mg tablet 10 mg PO DAILY PRN 04/28/22 08/19/23 mometasone 0.1 % topical cream 1 applic topical DAILY #15 grams 04/28/22 08/19/23 multivitamin 1 tab PO DAILY 04/28/22 08/19/23 acetaminophen 500 mg tablet 1,000 mg (2 x 500 mg) PO Q8H PRN 08/24/22 08/19/23 pain #90 tabs meloxicam 15 mg tablet 15 mg PO DAILY #30 tabs 10/04/22 08/19/23 aspirin 81 mg tablet,delayed 81 mg PO DAILY 04/22/23 08/19/23 release hydrocortisone 2.5 % topical 1 applic topical BID PRN 04/22/23 08/19/23 ointment methocarbamol 500 mg tablet See Rx Instructions PO TID PRN 04/22/23 08/19/23 mupirocin 2 % topical ointment 1 applic topical .4x04/22/23 08/19/23 Ventolin HFA 90 mcg/actuation 2 puff inhalation QID PRN 05/18/23 08/19/23 aerosol inhaler (albuterol sulfate) shortness of breath or wheezing #18 grams tiotropium bromide 1.25 2 puff inhalation DAILY #4 grams 05/18/23 08/19/23 mcg/actuation mist for inhalation (Spiriva Respimat) penicillin V potassium 500 mg 500 mg PO QID #55 tabs 08/19/23 tablet Previous Rx's Medication Instructions Recorded mometasone 0.1 % topical cream 1 applic topical DAILY #15 grams 04/28/22 acetaminophen 500 mg tablet 1,000 mg (2 x 500 mg) PO Q8H PRN 08/24/22 pain #90 tabs meloxicam 15 mg tablet 15 mg PO DAILY #30 tabs 10/04/22 Ventolin HFA 90 mcg/actuation 2 puff inhalation QID PRN 05/18/23 aerosol inhaler (albuterol sulfate) shortness of breath or wheezing #18 grams tiotropium bromide 1.25 2 puff inhalation DAILY #4 grams 05/18/23 mcg/actuation mist for inhalation (Spiriva Respimat) penicillin V potassium 500 mg 500 mg PO QID #55 tabs 08/19/23 tablet Allergies Allergy/AdvReac Type Severity Reaction Status Date / Time lidocaine Allergy Unknown Verified 08/19/23 08:26 ibuprofen Allergy eyes Verified 08/19/23 08:26 swell up tramadol AdvReac Severe seizures Verified 08/19/23 08:26 [email or web address] [From Chantix] AdvReac Severe Suicidal Verified 08/19/23 08:26 Ideation lactose AdvReac Intermediate Verified 08/19/23 08:26 prochlorperazine AdvReac freak out Verified 08/19/23 08:26 [From Compazine] prochlorperazine edisylate AdvReac freak out Verified 08/19/23 08:26 [From Compazine] prochlorperazine maleate AdvReac freak out Verified 08/19/23 08:26 [From Compazine] General Stated Complaint: DentalOral TOY: 4 Review of Systems Constitutional Constitutional: Denies fever(s) ENT Ears, Nose, Mouth, and Throat: Reports as per HPI PFSH All Active Problems (Updated 08/19/23 @ 15:23 by Temo Strickland MD) Dental infection (Acute) Pain, dental (Acute) Femoral acetabular impingement (Acute) LEFT Internal derangement of left knee (Acute) DEPO MEDROL 08/19/23 Contusion of rib (Acute) Rheumatoid arthritis (Chronic) UIP (usual interstitial pneumonitis) (Acute) Abnormal CT of the chest (Acute) Nicotine dependence, cigarettes, uncomplicated (Acute) Bereavement (Acute) Lateral epicondylitis (Acute) Lower back pain (Acute) Chronic neck pain (Acute) Eczema (Acute) Otalgia (Acute) Restless legs syndrome (Acute) Impotence (Acute) Anxiety (Chronic) Diabetes mellitus (Chronic) CAD (coronary artery disease) (Chronic) Hyperlipidemia (Acute) Smoker (Acute) Hypertension (Chronic) Chronic low back pain (Acute) Depression with anxiety (Acute) Erectile dysfunction (Acute) BPH (benign prostatic hyperplasia) (Chronic) Chronic eczematoid otitis externa of both ears (Acute) Sensorineural hearing loss (SNHL) of both ears (Acute) Preoperative cardiovascular examination (Acute) Medical History (Updated 08/19/23 @ 15:23 by Temo Strickland MD) Homelessness Hx of gastrointestinal disease Hx of infectious disease Organ-space surgical site infection Slowing of urinary stream Fever Arteriosclerosis of arterial coronary artery bypass graft History of scoliosis Seizure Per pt. states this is related to his allergy to tramado, which causes seizures Non-STEMI (non-ST elevated myocardial infarction) 02/18/21 [facility] Surgical History (Updated 08/19/23 @ 09:27 by VISHNU Tran) History of total right knee replacement (08/24/22) History of tonsillectomy Hx of hand surgery scaphoid bone surgery, screws Dr. 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 s/p surgery which has since resolved Family History (Updated 04/22/23 @ 09:59 by Theodora Tran) Mother , age 68 COPD (chronic obstructive pulmonary disease) Emphysema/COPD Father , mid 40's Diabetes Paternal Grandfather Heart disease Myocardial infarction Paternal Grandmother , age 80 No problems noted. Daughter Diabetes Daughter Diabetes Social History Smoking/Tobacco Use Status: Current every day Tobacco Type: cigarettes Years smoked: 44 Smoking risk assessment performed?: Yes Alcohol Intake: never Drug use: Never Substance use type: does not use Housing: house current occupation: disabled Pets and animals: Yes Pets and animals: cat(s) Current gender identity: male What is your relationship status?: Panel score (0-1 are the most socially isolated patients): 0 Do you feel safe at home: Yes Do you feel safe in your relationship?: Yes Exam Const General: cooperative and no acute distress HENMT Head: normocephalic and atraumatic Ears: TM normal on the right General nose exam: external nose normal Face and sinus: normal facial exam and face symmetric Mouth: moist mucous membranes Teeth and gingiva: caries Throat: posterior oropharynx normal Other: Tooth #1 tender to palpation with some dental caries, no fluctuance along gumline Eyes EOM: EOM intact bilaterally Neck Neck: trachea midline and supple Skin General skin exam: no rashes or lesions noted Course Vital Signs Vital signs: Vital Signs Temperature 36.6 C 08/19/23 14:21 Pulse 84 08/19/23 14:21 Respiratory Rate 15 08/19/23 14:21 Blood Pressure 126/91 H 08/19/23 14:21 Pulse Oximetry 100 08/19/23 14:21 Temperature 36.6 C 08/19/23 15:13 Temperature Source Temporal Artery Scan 08/19/23 15:13 Pulse 84 08/19/23 15:13 Respiratory Rate 15 08/19/23 15:13 Respiratory Effort Normal 08/19/23 14:23 Blood Pressure 126/91 H 08/19/23 15:13 Blood Pressure Position Sitting 08/19/23 15:13 Pulse Oximetry 100 08/19/23 15:13 Oxygen Delivery Method Room Air 08/19/23 15:13 Oxygen Flow Rate 0 08/19/23 14:21 Pain Level 10 08/19/23 15:13
[2023-08-19] MEDS: Bupivacaine 0.5% Pres-Free 30 ML VIAL IJ (15:50)
[2023-08-19] MEDS: Penicillin V POTASSIUM 500 MG TAB PO (15:51)
== END 2023-08-19 16:07 | disposition home or self-care (01) ==
PROVIDERS: Emergency Provider Student in an Organized Health Care Education/Training Program; PCP Nurse Practitioner Adult Health
DX: G50.1 Atypical facial pain (principal)
CPT/HCPCS: 20610; 64400; 73562; 99213; 73502; 73560; J1040

== ENCOUNTER 2023-09-06 13:58 | Emergency (ER) | payer MEDICARE, MEDICAID, SELFPAY ==
--- NOTE | 2023-09-06 14:02 | ED.GENADUL_ITS ---
Discharge Plan Disposition Patient Disposition: Home Discharge Details Clinical Impression: Contusion of rib on left side Primary Care Provider: Edilia Infante ED Provider: Gilbert Jones Home Meds and New Rx's Prescriptions: Continued nitroglycerin 0.4 mg tablet, sublingual 0.4 mg sublingual ONCE Rx Instructions: as a single dose; administer 5-10 minutes before situation known to preci pitate angina attack amlodipine 5 mg tablet 5 mg PO DAILY multivitamin Tablet 1 tab PO DAILY cetirizine 10 mg tablet 10 mg PO DAILY PRN mometasone 0.1 % cream 1 applic topical DAILY Qty: 15 1RF meloxicam 15 mg tablet 15 mg PO DAILY Qty: 30 3RF semaglutide 0.25 mg or 0.5 mg(2 mg/1.5 mL) pen injector 0.25 mg subcut QWEEK venlafaxine 75 mg tablet 150 mg PO DAILY tadalafil 5 mg tablet 5 mg PO DAILY metoprolol tartrate 50 mg tablet 50 mg PO BID aspirin 81 mg tablet,delayed release (DR/EC) 81 mg PO DAILY hydrocortisone 2.5 % ointment 1 applic topical BID PRN methocarbamol 500 mg tablet See Rx Instructions PO TID PRN Rx Instructions: 1-2tabs orally three times a day PRN; mupirocin 2 % ointment 1 applic topical .4xday Spiriva Respimat 1.25 mcg/actuation mist 2 puff inhalation DAILY Qty: 4 6RF albuterol sulfate [Ventolin HFA] 90 mcg/actuation HFA aerosol inhaler 2 puff inhalation QID PRN (Reason: shortness of breath or wheezing) Qty: 18 4RF acetaminophen 500 mg tablet 1,000 mg PO Q8H PRN Qty: 90 0RF Rx Instructions: Take two tablets up to every 8 hours as needed for pain penicillin V potassium 500 mg tablet 500 mg PO QID Qty: 55 0RF Discharge Instructions Instructions: Rib Contusion (ED) Additional Instructions: You were seen in the emergency department for your fall. Your x-ray showed no sign of any fractures. Please return to the emergency department if you develop worsening shortness of breath chest pain or have any other concerns. For your pain please take medications as follows: 1. Take acetaminophen (Tylenol), 1,000 mg (two 500 mg tabs) every 6 hours HPI General Date/Time Provider Initiated Documentation: 09/06/23 14:02 . HPI Narrative: MDM Primary survey intact. Reassuring shock index. On secondary survey patient has left anterior chest erythema and tenderness concerning for rib fracture. Clear equal breath sounds and my suspicion is low for pneumothorax. No hypoxia. No preceding chest pain or syncope so will defer D-dimer testing and ECG. No preceding vomiting to suggest acute electrolyte abnormality so will defer labs. No head strike so will defer CT head. No neck tenderness nor neck trauma so will defer CT cervical spine. Patient has taken 1 g of acetaminophen. He has an allergy to NSAIDs so we will treat with oral morphine. No pain out of proportion to suggest necrotizing soft tissue infection. He also has an allergy to Lidoderm patch adhesives. If patient has rib fracture will complete incentiv e spirometry. If patient has multiple rib fractures will consider CT to assess for complications. 3:25 PM Chest x-ray with no acute findings. On repeat assessment patient had persistently clear lungs. No fractures. I advised patient to ice his ribs for 20 minutes on 20 minutes off for the next day. I advised that he take scheduled acetaminophen. I also advised that he return to the emergency department if he develops worsening pain or any shortness of breath. He understood his return indications and we will proceed with empiric trial of expectant outpatient management. Given no acute osseous abnormalities will defer oral opiates at this point time. Chronic conditions affecting the care of the patient: Tobacco use History obtained from an outside historian: N/A External record review: [facility] [place] EMR [Diagnostic interpretations performed by me:] [Per my independent interpretation chest x-ray shows:] No acute cardiopulmonary process Medications: Morphine Social determinants of health affecting disposition: N/A Management discussed with: N/A Treatment/interventions considered: CT but deferred Response to therapies provided: Mildly improved pain in the ED status post treatment HPI This is a 57-year-old male smoker with history of diabetes and coronary artery disease arriving to the emergency department via private vehicle following a fall. Patient reportedly slipped on grass approximately 30 minutes ago. He landed on his left side on top of a stump and has resultant chest pain. He had no preceding syncope headache nausea vomiting or shortness of breath. He did not strike his head. He does not have neck pain. He has not been confused or vomiting since his fall. He is a daily tobacco user but denies routine ethanol and illicits. He had a strike to the emergency department he took 1 g of acetaminophen prior to arrival. He has an allergy to NSAIDs. Exam General: Uncomfortable-appearing in no acute distress speaking in complete sentences. Head: Normocephalic, atraumatic. Eye: Extraocular eye movements intact. No conjunctival injection. No scleral icterus. Ear, nose, mouth, throat: Grossly normal inspection. Normal voice, handling secretions normally. Neck: Trachea midline. Cardiovascular: Well-perfused distal extremities. Regular rate and rhythm Respiratory: Nonlabored respiration. Clear lungs bilaterally. Chest wall: Left-sided chest erythema and tenderness. No flail segments. Gastrointestinal: Nondistended abdomen. Musculoskeletal: No edema. Moving all 4 extremities spontaneously. Bilateral upper and lower extremities nontender. GCS 15. Skin: Normal for age and race, grossly normal temperature and turgor. No acute rash. Neurologic: Alert and appropriate, no apparent acute deficits. Psychiatric: Mood and manner are appropriate. Grooming and personal hygiene are appropriate. Related Data Home Medications Medication Instructions Recorded Confirmed semaglutide 0.25 mg or 0.5 mg (2 0.25 mg subcut QWEEK 07/16/21 08/19/23 mg/1.5 mL) subcutaneous pen injector venlafaxine 75 mg tablet 150 mg PO DAILY 07/16/21 08/19/23 metoprolol tartrate 50 mg tablet 50 mg PO BID 04/01/22 08/19/23 tadalafil 5 mg tablet 5 mg PO DAILY 04/01/22 08/19/23 nitroglycerin 0.4 mg sublingual 0.4 mg sublingual ONCE 04/07/22 08/19/23 tablet amlodipine 5 mg tablet 5 mg PO DAILY 04/28/22 08/19/23 cetirizine 10 mg tablet 10 mg PO DAILY PRN 04/28/22 08/19/23 mometasone 0.1 % topical cream 1 applic topical DAILY #15 grams 04/28/22 08/19/23 multivitamin 1 tab PO DAILY 04/28/22 08/19/23 acetaminophen 500 mg tablet 1,000 mg (2 x 500 mg) PO Q8H PRN 08/24/22 08/19/23 pain #90 tabs meloxicam 15 mg tablet 15 mg PO DAILY #30 tabs 10/04/22 08/19/23 aspirin 81 mg tablet,delayed 81 mg PO DAILY 04/22/23 08/19/23 release hydrocortisone 2.5 % topical 1 applic topical BID PRN 04/22/23 08/19/23 ointment methocarbamol 500 mg tablet See Rx Instructions PO TID PRN 04/22/23 08/19/23 mupirocin 2 % topical ointment 1 applic topical .4xday 04/22/23 08/19/23 Ventolin HFA 90 mcg/actuation 2 puff inhalation QID PRN 05/18/23 08/19/23 aerosol inhaler (albuterol sulfate) shortness of breath or wheezing #18 grams tiotropium bromide 1.25 2 puff inhalation DAILY #4 grams 05/18/23 08/19/23 mcg/actuation mist for inhalation (Spiriva Respimat) penicillin V potassium 500 mg 500 mg PO QID #55 tabs 08/19/23 tablet Previous Rx's Medication Instructions Recorded mometasone 0.1 % topical cream 1 applic topical DAILY #15 grams 04/28/22 acetaminophen 500 mg tablet 1,000 mg (2 x 500 mg) PO Q8H PRN 08/24/22 pain #90 tabs meloxicam 15 mg tablet 15 mg PO DAILY #30 tabs 10/04/22 Ventolin HFA 90 mcg/actuation 2 puff inhalation QID PRN 05/18/23 aerosol inhaler (albuterol sulfate) shortness of breath or wheezing #18 grams tiotropium bromide 1.25 2 puff inhalation DAILY #4 grams 05/18/23 mcg/actuation mist for inhalation (Spiriva Respimat) penicillin V potassium 500 mg 500 mg PO QID #55 tabs 08/19/23 tablet Allergies Allergy/AdvReac Type Severity Reaction Status Date / Time lidocaine Allergy Unknown Verified 09/06/23 14:22 ibuprofen Allergy eyes Verified 09/06/23 14:22 swell up tramadol AdvReac Severe seizures Verified 09/06/23 14:22 [email or web address] [From Chantix] AdvReac Severe Suicidal Verified 09/06/23 14:22 Ideation lactose AdvReac Intermediate Verified 09/06/23 14:22 prochlorperazine AdvReac freak out Verified 09/06/23 14:22 [From Compazine] prochlorperazine edisylate AdvReac freak out Verified 09/06/23 14:22 [From Compazine] prochlorperazine maleate AdvReac freak out Verified 09/06/23 14:22 [From Compazine] General TOY: 4 PFSH All Active Problems (Updated 09/06/23 @ 15:23 by Gilbert Jones MD) Contusion of rib on left side (Acute) Dental infection (Acute) Pain, dental (Acute) Femoral acetabular impingement (Acute) LEFT Internal derangement of left knee (Acute) DEPO MEDROL 08/19/23 Rheumatoid arthritis (Chronic) UIP (usual interstitial pneumonitis) (Acute) Abnormal CT of the chest (Acute) Nicotine dependence, cigarettes, uncomplicated (Acute) Bereavement (Acute) Lateral epicondylitis (Acute) Lower back pain (Acute) Chronic neck pain (Acute) Eczema (Acute) Otalgia (Acute) Restless legs syndrome (Acute) Impotence (Acute) Anxiety (Chronic) Diabetes mellitus (Chronic) CAD (coronary artery disease) (Chronic) Hyperlipidemia (Acute) Smoker (Acute) Hypertension (Chronic) Chronic low back pain (Acute) Depression with anxiety (Acute) Erectile dysfunction (Acute) BPH (benign prostatic hyperplasia) (Chronic) Chronic eczematoid otitis externa of both ears (Acute) Sensorineural hearing loss (SNHL) of both ears (Acute) Preoperative cardiovascular examination (Acute) Medical History (Updated 09/06/23 @ 15:23 by Gilbert Jones MD) Homelessness Hx of gastrointestinal disease Hx of infectious disease Organ-space surgical site infection Slowing of urinary stream Fever Arteriosclerosis of arterial coronary artery bypass graft History of scoliosis Seizure Per pt. states this is related to his allergy to tramado, which causes seizures Non-STEMI (non-ST elevated myocardial infarction) 02/18/21 [facility] Surgical History (Updated 08/19/23 @ 09:27 by VISHNU Tran) History of total right knee replacement (08/24/22) History of tonsillectomy Hx of hand surgery scaphoid bone surgery, screws Dr. 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 [facility] Had CHB s/p surgery which has since resolved Family History (Updated 04/22/23 @ 09:59 by Theodora Tran) Mother , age 68 COPD (chronic obstructive pulmonary disease) Emphysema/COPD Father , mid 40's Diabetes Paternal Grandfather Heart disease Myocardial infarction Paternal Grandmother , age 80 No problems noted. Daughter Diabetes Daughter Diabetes Social History Smoking/Tobacco Use Status: Current every day Tobacco Type: cigarettes Years smoked: 44 Smoking risk assessment performed?: Yes Alcohol Intake: never Drug use: Never Substance use type: does not use Housing: house current occupation: disabled Pets and animals: Yes Pets and animals: cat(s) Current gender identity: male What is your relationship status?: Panel score (0-1 are the most socially isolated patients): 0 Do you feel safe at home: Yes Do you feel safe in your relationship?: Yes
[2023-09-06 14:12] VITALS: RESP 20; TEMP 37.2; O2SAT 99
--- NOTE | 2023-09-06 14:15 | DI.RAD_ITS ---
Exam(s) XR RIBS LT W PA LAT CHEST CLINICAL HISTORY fall, trauma to left chest. COMPARISON: CR XR RIBS RT W PA LAT CHEST from 07/26/2023 TECHNIQUE:: PA and lateral views of the chest and four views of the left ribs were performed. FINDINGS: LUNGS: Clear. No pleural abnormality seen. HEART: Normal. Status post CABG MEDIASTINUM: Normal. BONES: Sternal wires. No displaced rib fracture is seen. No compression fractures are seen in the t horacic spine. No bony destructive lesion is seen. OTHER FINDINGS: None. IMPRESSION: 1. Unremarkable radiographic appearance of the left ribs. 2. No acute pulmonary findings.
[2023-09-06 14:27] VITALS: BP 114/76; PULSE 72
== END 2023-09-06 15:37 | disposition home or self-care (01) ==
PROVIDERS: Emergency Provider Emergency Medicine; PCP Nurse Practitioner Adult Health
DX: R07.89 Other chest pain (principal); S20.212A Contusion of left front wall of thorax, initial encounter; Z72.0 Tobacco use; E11.9 Type 2 diabetes mellitus without complications; I25.10 Atherosclerotic heart disease of native coronary artery without angina pectoris; W01.0XXA Fall on same level from slipping, tripping and stumbling without subsequent striking against object, initial encounter; I10 Essential (primary) hypertension; E78.5 Hyperlipidemia, unspecified
CPT/HCPCS: 99283; 71046; 71100; 99284